=== PATIENT | female | born 1990 | race Caucasian/White ===

== ENCOUNTER 2020-07-27 09:41 | Outpatient (RCR) | payer OTHER, SELFPAY ==
[2020-07-27] MEDS: RHO(D) IMMUNE GLOBULIN 300 MCG SYRINGE IM (16:45)
== END 2020-10-25 23:59 | disposition home or self-care (01) ==
LOC: ANHLAB 09:41
PROVIDERS: Visit Provider Obstetrics & Gynecology
DX: Z29.13 Encounter for prophylactic Rho(D) immune globulin (principal); O36.0130 Maternal care for anti-D [Rh] antibodies, third trimester, not applicable or unspecified; Z3A.00 Weeks of gestation of pregnancy not specified
CPT/HCPCS: 36415; 85461; 90384; 96372; J2790

== ENCOUNTER 2020-09-29 20:15 | Emergency (ER) | payer OTHER, SELFPAY ==
[2020-09-29 20:18] VITALS: BP 129/67; PULSE 75; RESP 16; TEMP 36.5; O2SAT 100
[2020-09-29 21:06] LABS: Basophils Percent Auto 0.5 % (0.2-1.2); Eosinophils Absolute Auto 0.1 K/mm3 (0-0.3); Hematocrit 38.3 % (37.0-47.0); Hemoglobin 12.6 g/dL (12.0-15.0); Immature Granulocyte Absolute 0.03 K/mm3 (0.00-0.031); Immature Granulocyte Percent A 0.3 % (0-0.5); Lymphocytes Absolute Auto 2.91 K/mm3 (0.9-3.2); Lymphocytes Percent Auto 32.8 % (18.3-44.2); Mean Corpuscular HGB Conc 32.9 g/dl (32-36); Mean Platelet Volume 10.1 fl (7.4-10.4); Monocytes Absolute Auto 0.6 K/mm3 (0.1-0.6); Monocytes Percent Auto 6.5 % (2.6-8.5); Neutrophils Absolute Auto 5.2 K/mm3 (1.3-6.7); Neutrophils Percent Auto 58.9 % (45.5-73.1); Platelet Count Result 254 k/mm3 (150-375); Red Blood Count 4.67 M/mm3 (4.2-5.4); Red Cell Distribution Width 13.9 % (11.5-14.5); White Blood Count 8.9 K/mm3 (4.5-10.0)
--- NOTE | 2020-09-29 21:09 | ED.FEMALEGU ---
HPI - Female Genitourinary General Chief complaint: Vaginal Bleeding Stated complaint: 15 weeks preg; vag bleed Time Seen by Provider: 09/29/20 21:02 Source: patient Mode of arrival: ambulatory Limitations: no limitations History of Present Illness HPI Narrative: Patient is a 30-year-old G5, P3 at 15 weeks complaining of vaginal bleeding that started 2 hours prior to arrival. Patient also complaining of mild abdominal cramping, lower. Patient states that she has had 2 ultrasounds during this the most recent one was when she was at 13 weeks and it was normal . Patient also received RhoGam back in July due to vaginal spotting. Patient has had care during this . Patient has no other complaints. Related Data Home Medications Medication Instructions Recorded Confirmed No Home Medications 05/21/19 05/21/19 Allergies Allergy/AdvReac Type Severity Reaction Status Date / Time acetaminophen Allergy Mild Nausea and Verified 05/21/19 10:38 Vomiting hydrocodone Allergy Mild Nausea and Verified 05/21/19 10:38 Vomiting TIDE (SOAP) Allergy Mild RASH Uncoded 05/21/19 10:38 Review of Systems Review of Systems: All systems reviewed & are unremarkable except as noted in HPI and below Constitutional: Constitutional: Denies body ache(s), Denies chills, Denies excessive sweating, Denies fatigue, Denies fever(s), Denies headache(s), Denies lethargy, Denies malaise, Denies weakness and Denies weight loss Eyes: Eyes: Denies blurry vision, Denies change in vision and Denies loss of vision ENT: Denies dizziness, Denies ear discharge, Denies headache(s), Denies lip swelling, Denies epistaxis, Denies nasal congestion, Denies neck pain, Denies throat swelling and Denies tongue swelling Cardiovascular: Cardiovascular: Denies chest pain, Denies chest pain at rest, Denies chest pain with activity, Denies diaphoresis, Denies rapid heart rate, Denies edema, Denies irregular heart rhythm, Denies lightheadedness, Denies palpitations, Denies dyspnea and Denies dyspnea on exertion Respiratory: Respiratory: Denies chest congestion, Denies cough, Denies hemoptysis, Denies dyspnea and Denies dyspnea on exertion Gastrointestinal: Gastrointestinal: Denies abdominal pain, Denies melena, Denies hematochezia, Denies diarrhea, Denies nausea, Denies vomiting and Denies hematemesis Musculoskeletal: Musculoskeletal: Denies abnormal gait, Denies deformity, Denies joint swelling, Denies limited range of motion, Denies neck pain and Denies numbness Neurologic: Denies Abnormal speech present, Denies abnormal gait, Denies confusion, Denies dizziness, Denies headache(s), Denies focal weakness, Denies loss of vision, Denies numbness, Denies Other visual disturbances, Denies Sensory deficit (Neuro) and Denies weakness Psychiatric: Psychiatric: Denies confusion, Denies depression, Denies auditory hallucinations, Denies homicidal ideation and Denies suicidal ideation Endocrine: Endocrine: Denies cold intolerance, Denies excessive sweating, Denies fatigue, Denies heat intolerance and Denies palpitations Hematologic/Lymphatic: Hematologic/Lymphatic: Denies easy bleeding and Denies easy bruising Allergic/Immunologic: Allergic/Immunologic: Denies lip swelling, Denies throat swelling and Denies tongue swelling PMF Surgical History Surgical History (Updated 05/21/19 @ 10:37 by Mónica Moore PA-C) History of cholecystectomy History of dilation and curettage Social History Social History (Updated 05/21/19 @ 10:37 by Mónica Moore PA-C) Smoking status: Never smoker Substance use: never Gender identity (if verbalized by the patient): Female Comments Past medical history: None Social history: Non-smoker no EtOH or drug use Family history: Noncontributory Exam Const: General: cooperative, healthy appearing, comfortable, no acute distress, well developed, alert and awake; No confusion Orientation/consciousness: oriented to p
[2020-09-29 21:19] VITALS: BP 121/79; BP 132/83; PULSE 67; PULSE 71
--- NOTE | 2020-09-29 21:21 | PC.NURSE ---
EDNP presented to bedside. Pt presents to ED with complaints of vaginal bleeding since 1900. Pt states this is her 5th preganancy and she is approx 15 weeks . Pt states she is having to changing her pad 2-3 times an hour. Pt alert and oriented x4 and in no obvious distress.
[2020-09-29 21:24] VITALS: BP 125/82; PULSE 79
--- NOTE | 2020-09-29 21:25 | PC.NURSE ---
Pelvic exam completed by EDNP and pt tolerated well with no complaints or concerns voiced.
[2020-09-29] MEDS: SODIUM CHLORIDE 0.9% IV 1,000 ML 999 ML IV CONT (21:30)
--- NOTE | 2020-09-29 21:30 | PC.NURSE ---
Pt resting on cart alert, stable and in no obvious distress. Vitals are stable. Call button and personal items within reach. Pt advised to press call button for assistance.
[2020-09-29 21:42] LABS: Add Urine Microscopic? YES; Appearance Urine Clear (Clear); Bilirubin Urine Negative (Negative); Blood Urine 3+ (Negative); Color Urine Yellow (Yellow); Glucose Urine UA Negative (Negative); Ketones Urine 1+ mg/dL (Negative); Leukocyte Esterase Ur Negative LEU/UL (Negative); Mucus Urine Rare /lpf; Nitrate Urine Negative (Negative); Protein Urine 1+ mg/dL (Negative); RBC Urine >75 /hpf (0-2); Squamous Epithelial Cell Urine Few /hpf (Few); Urobilinogen Urine Negative mg/dL (<2.0); WBC Urine 0-3 /hpf
[2020-09-29 21:48] LABS: Alanine Aminotransferase 10 U/L (4-35); Albumin Level 4.2 g/dL (3.5-5.1); Alkaline Phosphatase 47 U/L (38-126); Anion Gap 8 mmol/L (8-16); Aspartate Amino Transferase 21 U/L (14-36); Bilirubin,Total 0.2 mg/dL (0.2-1.3); Blood Urea Nitrogen 7 mg/dL (7-17); Calcium 9.6 mg/dL (8.4-10.2); Carbon Dioxide 24 mmol/L (22-30); Chloride 107 mmol/L (98-107); Estimated CRCL calculation 95 ml/min; Estimated Glomerular Filt Rate > 60; Glucose 85 mg/dL (65-105); Potassium 3.6 mmol/L (3.4-5.0); Sodium 139 mmol/L (137-145)
--- NOTE | 2020-09-29 22:15 | PC.NURSE ---
pt resting on cart in its lowest position with call button and personal items within reach. Pt alert and oriented x4 and in no obvious distress. vitals are stable and pt advised to press call button for assistance.
--- NOTE | 2020-09-29 23:17 | PC.NURSE ---
Pt resting on cart in its lowest position. Pt updated on poc and all questions and concerns addressed. Vitals are stable and pt in no obvious distress at this time.
[2020-09-29 23:19] VITALS: BP 126/81; PULSE 80; RESP 15; TEMP 37.1; O2SAT 100
[2020-09-29 23:20] VITALS: BP 126/81; PULSE 80; RESP 15; TEMP 37.1; O2SAT 100
== END 2020-09-29 23:21 | disposition home or self-care (01) ==
PROVIDERS: Emergency Medicine; Emergency Provider Emergency Medicine
DX: O20.0 Threatened abortion (principal)
CPT/HCPCS: 36415; 80053; 81001; 81025; 84702; 85025; 85461; 86880; 86902; 96360; 96361; 99284; J7030

== ENCOUNTER 2020-09-30 10:39 | Outpatient (CLI) | payer OTHER, SELFPAY ==
--- NOTE | ~2020-09-30 | US_ITS ---
EXAMINATION: US OB limited EXAM DATE: 09/30/2020 11:07 INDICATION: Vaginal bleeding, . 2nd trimester. TECHNIQUE: Pelvic obstetrical transabdominal sonogram was performed by a technologist. There are mu ltiple grayscale and Doppler images available for interpretation. Comparison is made to prior examina tion from 05/21/2019. FINDINGS: There is a single fetus identified in transverse, feet on maternal left side presentation w ith a heart rate of 159 beats per minute. The placenta is located in the anterior fundal position. T here is no sonographic evidence of retroplacental hemorrhage identified. There is subjectively expect ed amount of amniotic fluid. IMPRESSION: 1. Single fetus in transverse presentation with heart rate 159 beats per minute. 2. Unremarkable anterior fundal placenta. Reviewed, dictated and finalized at location A. IMPRESSION: 1. Single fetus in transverse presentation with heart rate 159 beats per minut e. 2. Unremarkable anterior fundal placenta.
== END 2020-09-30 10:40 | disposition home or self-care (01) ==
LOC: ANHIMG 10:43
PROVIDERS: Visit Provider Obstetrics & Gynecology
DX: O20.9 Hemorrhage in early pregnancy, unspecified (principal); Z3A.00 Weeks of gestation of pregnancy not specified
CPT/HCPCS: 76815

== ENCOUNTER 2020-12-09 09:31 | Observation (INO) | payer OTHER, SELFPAY ==
[2020-12-09 09:47] VITALS: BP 128/78; PULSE 84
[2020-12-09 10:01] VITALS: BP 123/81; PULSE 89
[2020-12-09 10:11] VITALS: BMI 31.8
--- NOTE | 2020-12-09 10:12 | OBADM ---
This patient, Margie Medeiros, admitted to the OB room OB Post 115 for observation. Patient/family oriented to hospital policies and general routines including ID bracelet, bed and alarms, visiting hours, pain management, procedures, bathroom and other care routines, personal items, smoking policy, room service/diet, and visiting hours. Patient/Family are encouraged to report perceived risks to care and to ask questions if they do not understand what they are told or what they should do.
[2020-12-09 10:16] VITALS: BP 121/77; PULSE 87
[2020-12-09 10:17] LABS: Add Urine Microscopic? NO; Appearance Urine Clear (Clear); Bilirubin Urine Negative (Negative); Blood Urine Negative (Negative); Color Urine Yellow (Yellow); Glucose Urine UA Negative (Negative); Ketones Urine Negative (Negative); Leukocyte Esterase Ur Negative LEU/UL (Negative); Nitrate Urine Negative (Negative); Protein Urine Negative (Negative); Specific Grav Ur 1.006 (1.001-1.035); Urobilinogen Urine Negative mg/dL (<2.0)
--- NOTE | 2020-12-09 10:30 | PC.NURSE ---
1601--Phone call to Richie Rivero CNM re: pt's lab results, her reports of cramping, no ctxns noted on EFM or to palpation. Orders to DC home at this time.
[2020-12-09 10:31] VITALS: BP 117/77; PULSE 78
--- NOTE | 2020-12-30 08:25 | P.PNOB_ITS ---
OB - Triage/Final Diagnosis Visit Information Comments/Additional reasons for admission: I have assessed the risk for this patient, Margie Medeiros, and determined that she would benefit from observation care. Evaluation Laboratory results: Laboratory Tests 12/09/20 10:01 Urine Color Yellow Urine Appearance Clear Urine pH 7.0 Ur Specific [place] 1.006 Urine Protein Negative Urine Glucose (UA) Negative Urine Ketones Negative Ur Blood (Man) Negative Urine Nitrate Negative Urine Bilirubin Negative Urine Urobilinogen Negative Leukocyte Esterase Rfl Negative Final Diagnosis (1) False labor: Code(s): O47.9 - False labor, unspecified Status: Acute
== END 2020-12-09 10:43 | disposition home or self-care (01) ==
PROVIDERS: Advanced Practice Midwife; Admitting Provider Obstetrics & Gynecology; Visit Provider Obstetrics & Gynecology
DX: O47.9 False labor, unspecified (principal); Z3A.00 Weeks of gestation of pregnancy not specified
CPT/HCPCS: 81003; G0378; G0379

== ENCOUNTER 2020-12-15 17:32 | Emergency (ER) | payer OTHER, SELFPAY ==
[2020-12-15 17:43] VITALS: BP 113/74; PULSE 92; RESP 18; TEMP 36.7; O2SAT 100
--- NOTE | 2020-12-15 18:26 | ED.SKABFB ---
HPI - Skin/Abscess/Foreign Bdy General Chief complaint: Skin/Abscess/Foreign Body Stated complaint: RASH Source: patient and RN notes reviewed Mode of arrival: ambulatory History of Present Illness HPI narrative: This is a 30-year-old female who presented to our urgent care with complaints generalized rash. Patient notes that in the past she would get steroid shots for her rash but due to her she is not able to get those shots. She did call her [facility] who referred her to urgent care. I explained to patient that due to her we would not be able to give her any of the medication did we typically give for for contact dermatitis she would need to follow-up with her primary care physician. She was instructed to use mwxv-exi-lwffoly Benadryl or Claritin to relieve her. The patient denies SOB, CP, palpitation, extremity numbness, lightheadedness, dizziness, constipation, diarrhea, chills, or fever. MD complaint: rash Related Data Home Medications Medication Instructions Recorded Confirmed 1 tablet PO 12/09/20 Allergies Allergy/AdvReac Type Severity Reaction Status Date / Time lavender (Lavandula Allergy Hives Verified 12/09/20 10:11 angustifolia) TIDE (SOAP) Allergy Mild RASH Uncoded 05/21/19 10:38 Review of Systems Review of Systems: Review of systems [facility] Surgical History Surgical History (Updated 05/21/19 @ 10:37 by Mónica Moore PA-C) History of cholecystectomy History of dilation and curettage Family History Family History (Updated 12/15/20 @ 18:27 by MARCIAL Briceno) Other Family history non-contributory Social History Social History (Updated 05/21/19 @ 10:37 by Mónica Moore PA-C) Smoking status: Never smoker Substance use: never Gender identity (if verbalized by the patient): Female Exam Narrative: GENERAL: This is a well-nourished, well-developed patient, in no apparent distress. HEAD: normocephalic, atraumatic. EYES: PERRL. Sclera clear/white. Vision is grossly intact. EARS: External ears normal, auditory canals clear and without drainage, TMs normal without perforation. Hearing grossly intact. NOSE: External nose normal with no obvious nasal discharge, nares without redness, no rhinorrhea. THROAT: Mucous membranes moist, posterior pharynx clear. NECK: Neck supple, non-tender without lymphadenopathy, masses or thyromegaly. CARDIOVASCULAR: Regular rate and rhythm without murmurs, gallops, or rubs. RESPIRATORY: Clear to auscultation. Breath sounds equal bilaterally. No wheezes, rales, or rhonchi. GASTROINTESTINAL: Abdomen soft, non-tender, nondistended. Bowel sounds are active. No hepato-splenomegaly, or palpable masses. No guarding. SKIN: Generalized erythema and edema to her scalp, chest area and upper extremities NEURO: awake, alert, and oriented to person, place and time. There were no obvious focal neurologic abnormalities. Steady gait EXTREMITIES: Normal range of motion. No edema. No calf tenderness. Negative Homans sign bilaterally. BACK: Nontender without deformity or crepitance. No flank tenderness. Course Course Emergency Course: Patient instructed to use [id number]-zmm-cpzigeo medications and to check box to see if it would harm her fetus. She was instructed to contact her [facility]. Vital Signs Vital signs: Vital Signs Temperature 98.1 F 12/15/20 17:43 Pulse Rate 92 12/15/20 17:43 Respiratory Rate 18 12/15/20 17:43 Blood Pressure 113/74 12/15/20 17:43 Pulse Oximetry 100 12/15/20 17:43 Temperature 98.1 F 12/15/20 17:43 Pulse Rate 92 12/15/20 17:43 Respiratory Rate 18 12/15/20 17:43 Blood Pressure 113/74 12/15/20 17:43 Pulse Oximetry 100 12/15/20 17:43 MDM - Skin/Abscess/Foreign Bdy Differential Diagnosis Differential diagnosis: Likely cellulitis, insect bites, impetigo and contact dermatitis Discharge Plan Discharge Clinical Impression: Contact dermatitis Qualifiers: Contact dermatitis t
== END 2020-12-15 18:54 | disposition home or self-care (01) ==
PROVIDERS: Emergency Provider Nurse Practitioner
DX: O99.712 Diseases of the skin and subcutaneous tissue complicating pregnancy, second trimester (principal); Z3A.25 25 weeks gestation of pregnancy; L24.5 Irritant contact dermatitis due to other chemical products
CPT/HCPCS: 99211; G0463

== ENCOUNTER 2020-12-27 13:14 | Outpatient (CLI) | payer OTHER, SELFPAY ==
[2020-12-27 14:35] VITALS: BP 119/77; PULSE 90
--- NOTE | 2020-12-27 14:55 | PC.NURSE ---
Dr Godinez notified of c/o leaking and negative ROM plus. OK to dc home.
== END 2020-12-27 14:56 | disposition home or self-care (01) ==
LOC: ANHOBOP 15:06 → ANHOBPP 15:07
PROVIDERS: Visit Provider Obstetrics & Gynecology
DX: O42.90 Premature rupture of membranes, unspecified as to length of time between rupture and onset of labor, unspecified weeks of gestation (principal); Z3A.00 Weeks of gestation of pregnancy not specified
CPT/HCPCS: 59025; 84112; 99199

== ENCOUNTER 2020-12-29 08:29 | Outpatient (CLI) | payer OTHER, SELFPAY ==
[2020-12-29 10:07] LABS: Hematocrit 32.7 % (37.0-47.0); Hemoglobin 10.4 g/dL (12.0-15.0)
[2020-12-29 10:17] LABS: Glucose 1 Hour PP 50gm Dose 138 mg/dL
[2020-12-29 10:56] LABS: HIV 1/2 Ab P24 Ag Result Negative (Negative)
[2020-12-29 11:20] LABS: Rapid Plasma Reagin Non-Reactive (NonReactive)
[2020-12-29] MEDS: RHO(D) IMMUNE GLOBULIN 300 MCG/2 ML SYRINGE IM (16:45)
== END 2020-12-29 08:30 | disposition home or self-care (01) ==
LOC: ANHLAB 08:31
PROVIDERS: Visit Provider Advanced Practice Midwife
DX: O36.0130 Maternal care for anti-D [Rh] antibodies, third trimester, not applicable or unspecified (principal); Z3A.00 Weeks of gestation of pregnancy not specified
CPT/HCPCS: 36415; 82947; 85014; 85018; 85461; 86592; 86703; 90384; 96372; G0432; J2790

== ENCOUNTER 2020-12-31 09:24 | Outpatient (CLI) | payer OTHER, SELFPAY ==
[2020-12-31 09:52] VITALS: BP 114/73; PULSE 117
[2020-12-31 11:20] VITALS: BP 114/73; PULSE 100
== END 2020-12-31 10:15 | disposition home or self-care (01) ==
LOC: ANHOBOP 09:32 → ANHOBPP 09:33
PROVIDERS: Visit Provider Advanced Practice Midwife
DX: O42.90 Premature rupture of membranes, unspecified as to length of time between rupture and onset of labor, unspecified weeks of gestation (principal); Z3A.00 Weeks of gestation of pregnancy not specified
CPT/HCPCS: 59025; 84112; 99199

== ENCOUNTER 2021-01-24 15:06 | Observation (INO) | payer OTHER, SELFPAY ==
[2021-01-24 15:31] VITALS: BP 120/72; PULSE 102
[2021-01-24 15:46] VITALS: BP 116/73; PULSE 88
[2021-01-24 16:01] VITALS: BP 123/73; PULSE 101
[2021-01-24 16:16] VITALS: BP 105/80; PULSE 91
[2021-01-24 16:31] VITALS: BP 118/70; PULSE 87
[2021-01-24 16:46] VITALS: BP 114/70; PULSE 97
[2021-01-24 17:16] LABS: Add Urine Microscopic? YES; Appearance Urine Clear (Clear); Bacteria Urine Trace /hpf; Bilirubin Urine Negative (Negative); Blood Urine Negative (Negative); Calcium Oxalate Crystals Urine Present /hpf; Color Urine Yellow (Yellow); Glucose Urine UA Negative (Negative); Ketones Urine Negative (Negative); Leukocyte Esterase Ur Negative LEU/UL (NEGATIVE); Mucus Urine Rare /lpf; Nitrate Urine Negative (Negative); Protein Urine 1+ mg/dL (Negative); Specific Grav Ur 1.027 (1.001-1.035); Squamous Epithelial Cell Urine Rare /hpf (Few); Urobilinogen Urine Negative mg/dL (<2.0); WBC Urine 0-3 /hpf (0-3)
--- NOTE | 2021-02-01 11:41 | P.PNOB_ITS ---
OB - Triage/Final Diagnosis Visit Information Date of evaluation: 01/30/21 Reason for evaluation: threatened labor Comments/Additional reasons for admission: I have assessed the risk for this patient, Margie Medeiros, and determined that she would benefit from observation care. Evaluation Laboratory results: Laboratory Tests 01/24/21 16:57 Urine Color Yellow Urine Appearance Clear Urine pH 6.0 Ur Specific [place] 1.027 Urine Protein 1+ H Urine Glucose (UA) Negative Urine Ketones Negative Ur Blood (Man) Negative Urine Nitrate Negative Urine Bilirubin Negative Urine Urobilinogen Negative Ur Leukocyte Esterase Negative Urine RBC 3-5 H Urine WBC 0-3 Ur Squamous Epith Cells Rare Calcium Oxalate Crystal Present Urine Bacteria Trace Urine Mucus Rare
== END 2021-01-24 17:01 | disposition home or self-care (01) ==
PROVIDERS: Advanced Practice Midwife; Admitting Provider Obstetrics & Gynecology; Referring Provider Advanced Practice Midwife; Visit Provider Obstetrics & Gynecology
DX: O47.9 False labor, unspecified (principal); Z3A.00 Weeks of gestation of pregnancy not specified
CPT/HCPCS: 81001; 87086; G0378; G0379

== ENCOUNTER 2021-02-01 15:16 | Observation (INO) | payer OTHER, SELFPAY ==
[2021-02-01 15:53] VITALS: BP 121/70; PULSE 78
[2021-02-01 16:00] VITALS: BMI 33.3
[2021-02-01 16:08] LABS: Add Urine Microscopic? YES; Appearance Urine Cloudy (Clear); Bacteria Urine Trace /hpf; Bilirubin Urine Negative (Negative); Blood Urine Negative (Negative); Color Urine Yellow (Yellow); Glucose Urine UA Negative (Negative); Ketones Urine Negative (Negative); Leukocyte Esterase Ur 2+ LEU/UL (NEGATIVE); Mucus Urine Rare /lpf; Nitrate Urine Negative (Negative); Protein Urine Negative (Negative); Specific Grav Ur 1.011 (1.001-1.035); Squamous Epithelial Cell Urine Many /hpf (Few); Urobilinogen Urine Negative mg/dL (<2.0)
--- NOTE | 2021-02-28 21:33 | P.PNOB_ITS ---
OB - Triage/Final Diagnosis Visit Information Comments/Additional reasons for admission: I have assessed the risk for this patient, Margie Medeiros, and determined that she would benefit from observation care. Evaluation Laboratory results: Laboratory Tests 02/01/21 15:55 Urine Color Yellow Urine Appearance Cloudy H Urine pH 7.0 Ur Specific [place] 1.011 Urine Protein Negative Urine Glucose (UA) Negative Urine Ketones Negative Ur Blood (Man) Negative Urine Nitrate Negative Urine Bilirubin Negative Urine Urobilinogen Negative Ur Leukocyte Esterase 2+ H Urine RBC 3-5 H Urine WBC 4-6 H Ur Squamous Epith Cells Many H Urine Bacteria Trace Urine Mucus Rare
--- NOTE | 2021-03-04 07:41 | P.PNOB_ITS ---
OB - Triage/Final Diagnosis Visit Information Comments/Additional reasons for admission: I have assessed the risk for this patient, Margie Medeiros, and determined that she would benefit from observation care. Evaluation Laboratory results: Laboratory Tests 02/01/21 15:55 Urine Color Yellow Urine Appearance Cloudy H Urine pH 7.0 Ur Specific [place] 1.011 Urine Protein Negative Urine Glucose (UA) Negative Urine Ketones Negative Ur Blood (Man) Negative Urine Nitrate Negative Urine Bilirubin Negative Urine Urobilinogen Negative Ur Leukocyte Esterase 2+ H Urine RBC 3-5 H Urine WBC 4-6 H Ur Squamous Epith Cells Many H Urine Bacteria Trace Urine Mucus Rare Final Diagnosis (1) contractions: Code(s): O47.00 - False labor before 37 completed weeks of gestation, unspecified trimester Status: Acute
== END 2021-02-01 16:47 | disposition home or self-care (01) ==
PROVIDERS: Admitting Provider Obstetrics & Gynecology; PCP Advanced Practice Midwife; Visit Provider Obstetrics & Gynecology
DX: O60.03 Preterm labor without delivery, third trimester (principal); Z3A.32 32 weeks gestation of pregnancy
CPT/HCPCS: 81001; 87086; G0378; G0379

== ENCOUNTER 2021-02-21 11:04 | Observation (INO) | payer OTHER, SELFPAY ==
[2021-02-21 11:33] VITALS: BP 131/82; PULSE 102
[2021-02-21 11:38] VITALS: BP 127/80; PULSE 88; BMI 34.0
--- NOTE | 2021-02-21 11:39 | OBADM ---
This patient, Margie Medeiros, admitted to the OB room OB Post 113 for observation for contractions on/off since Sunday. She states she will have some contractions or cramping for a while, then they stop. Patient is oriented to hospital policies and general routines including ID bracelet, bed and alarms, visiting hours, pain management, procedures, bathroom and other care routines, personal items, smoking policy, room service/diet, call light and visiting hours. Patient is encouraged to report perceived risks to care and to ask questions if she does not understand what she is told or what she should do.
[2021-02-21 11:46] VITALS: BP 125/90; PULSE 87
[2021-02-21 12:04] VITALS: BP 119/76; PULSE 67
[2021-02-21 12:11] LABS: Basophils Percent Auto 0.2 % (0.2-1.2); Eosinophils Percent Auto 0.5 % (0-4.4); Hematocrit 30.4 % (37.0-47.0); Hemoglobin 9.4 g/dL (12.0-15.0); Immature Granulocyte Absolute 0.05 K/mm3 (0.00-0.031); Immature Granulocyte Percent A 0.6 % (0-0.5); Lymphocytes Percent Auto 22.2 % (18.3-44.2); Mean Corpuscular HGB Conc 30.9 g/dl (32-36); Mean Corpuscular Hemoglobin 24.2 pg (26-34); Mean Corpuscular Volume 78.1 fl (80-100); Mean Platelet Volume 10.7 fl (7.4-10.4); Monocytes Absolute Auto 0.6 K/mm3 (0.1-0.6); Monocytes Percent Auto 6.8 % (2.6-8.5); Neutrophils Absolute Auto 5.6 K/mm3 (1.3-6.7); Neutrophils Percent Auto 69.7 % (45.5-73.1); Platelet Count Result 182 k/mm3 (150-375); Red Blood Count 3.89 M/mm3 (4.2-5.4); Red Cell Distribution Width 14.6 % (11.5-14.5); White Blood Count 8.1 K/mm3 (4.5-10.0)
[2021-02-21 12:13] LABS: Add Urine Microscopic? NO; Appearance Urine Clear (Clear); Bilirubin Urine Negative (Negative); Blood Urine Negative (Negative); Color Urine Yellow (Yellow); Glucose Urine UA Negative (Negative); Ketones Urine Negative (Negative); Leukocyte Esterase Ur Negative LEU/UL (NEGATIVE); Nitrate Urine Negative (Negative); Protein Urine Negative (Negative); Specific Grav Ur 1.008 (1.001-1.035); Urobilinogen Urine Negative mg/dL (<2.0)
[2021-02-21 12:21] LABS: Alanine Aminotransferase 10 U/L (4-35); Albumin Level 3.7 g/dL (3.5-5.1); Alkaline Phosphatase 109 U/L (38-126); Anion Gap 4 mmol/L (8-16); Aspartate Amino Transferase 19 U/L (14-36); Bilirubin,Total 0.3 mg/dL (0.2-1.3); Blood Urea Nitrogen 5 mg/dL (7-17); Calcium 8.5 mg/dL (8.4-10.2); Carbon Dioxide 25 mmol/L (22-30); Chloride 106 mmol/L (98-107); Estimated CRCL calculation 113 ml/min; Estimated Glomerular Filt Rate > 60; Glucose 84 mg/dL (65-110); Potassium 4.1 mmol/L (3.4-5.0); Sodium 135 mmol/L (137-145); Uric Acid 4.3 mg/dL (2.5-7.5)
--- NOTE | 2021-03-14 08:18 | P.PNOB_ITS ---
OB - Triage/Final Diagnosis Visit Information Comments/Additional reasons for admission: I have assessed the risk for this patient, Margie Medeiros, and determined that she would benefit from observation care. Evaluation Laboratory results: Laboratory Tests 02/21/21 02/21/21 02/21/21 12:01 12:01 12:01 WBC 8.1 RBC 3.89 L Hgb 9.4 L Hct 30.4 L MCV 78.1 L MCH 24.2 L MCHC 30.9 L RDW 14.6 H Plt Count 182 MPV 10.7 H Immature Gran % (Auto) 0.6 H Neut % (Auto) 69.7 Lymph % (Auto) 22.2 [place] % (Auto) 6.8 Eos % (Auto) 0.5 Baso % (Auto) 0.2 Lymph # (Auto) 1.80 [place] # (Auto) 0.6 Eos # (Auto) 0.0 Baso # (Auto) 0.0 Abs Immat Gran (auto) 0.05 H Absolute Neuts (auto) 5.6 Absolute Nucleated RBC 0.0 Nucleated RBC % 0.0 Sodium 135 L Potassium 4.1 Chloride 106 Carbon Dioxide 25 Anion Gap 4 L BUN 5 L Creatinine 0.60 L Estim Creat Clear Calc 113 Estimated GFR > 60 Glucose 84 Uric Acid 4.3 Calcium 8.5 Total Bilirubin 0.3 AST 19 ALT 10 Alkaline Phosphatase 109 Total Protein 7.0 Albumin 3.7 Urine Color Yellow Urine Appearance Clear Urine pH 7.0 Ur Specific [place] 1.008 Urine Protein Negative Urine Glucose (UA) Negative Urine Ketones Negative Ur Blood (Man) Negative Urine Nitrate Negative Urine Bilirubin Negative Urine Urobilinogen Negative Ur Leukocyte Esterase Negative Final Diagnosis (1) False labor: Code(s): O47.9 - False labor, unspecified Status: Acute
== END 2021-02-21 12:59 | disposition home or self-care (01) ==
PROVIDERS: Admitting Provider Obstetrics & Gynecology; PCP Advanced Practice Midwife; Visit Provider Obstetrics & Gynecology
DX: O47.03 False labor before 37 completed weeks of gestation, third trimester (principal); Z3A.35 35 weeks gestation of pregnancy
CPT/HCPCS: 36415; 80053; 81003; 84550; 85025; 87086; 87088; G0378; G0379

== ENCOUNTER 2021-03-01 12:19 | Observation (INO) | payer OTHER, SELFPAY ==
--- NOTE | ~2021-03-01 | US_ITS ---
EXAMINATION: US OB BPP wo non-stress DATE: 03/01/2021 16:02 CDT INDICATION: Decreased movement TECHNIQUE: Real-time transabdominal obstetric ultrasound. FINDINGS: Comparison to 09/30/2020 There is a single living fetus in vertex presentation. The placenta is anterior without placenta pre via. cardiac activity and movement is noted with a heart rate of 144 beats per minute. Biophysical profile: breathin of 2 movement: 2 of 2 tone: 2 of 2 Amniotic flud pocket: 2 of 2 Total score: 8 of 8 IMPRESSION: 1. Single living intrauterine in vertex presentation. 2: Total biophysical profile score of 8/8. Reviewed, dictated and finalized at location B.
[2021-03-01 12:27] VITALS: BMI 34.1
--- NOTE | 2021-03-01 15:46 | OBADM ---
This patient, Margie Medeiros, admitted to the OB room Labor/Delivery/Recovery 106 for observation. Patient/family oriented to hospital policies and general routines including ID bracelet, bed and alarms, visiting hours, pain management, procedures, bathroom and other care routines, personal items, smoking policy, room service/diet, and visiting hours. Patient/Family are encouraged to report perceived risks to care and to ask questions if they do not understand what they are told or what they should do.
--- NOTE | 2021-03-01 16:02 | PC.NURSE ---
1540--To US per wheelchair.
--- NOTE | 2021-03-01 16:03 | PC.NURSE ---
1603--[facility] 12/19. DC orders given.
--- NOTE | 2021-03-09 07:38 | PM.OBTRLD ---
OB - Triage/Final Diagnosis Visit Information Date of evaluation: 03/01/21 Reason for evaluation: threatened labor Comments/Additional reasons for admission: I have assessed the risk for this patient, Margiearistides Medeiros, and determined that she would benefit from observation care.
== END 2021-03-01 16:06 | disposition home or self-care (01) ==
LOC: ANHLDR 15:19
PROVIDERS: Admitting Provider Obstetrics & Gynecology; Visit Provider Obstetrics & Gynecology
DX: O47.03 False labor before 37 completed weeks of gestation, third trimester (principal); Z3A.36 36 weeks gestation of pregnancy
CPT/HCPCS: 76819; G0378; G0379

== ENCOUNTER 2021-03-17 01:49 | Inpatient (IN) | payer OTHER, SELFPAY ==
[2021-03-17] VITALS (132 sets, daily range): BP systolic 99–161; BP diastolic 52–107; PULSE 77–137; RESP 18–20; TEMP 36–38; O2SAT 95–100; BMI 34.5
--- NOTE | 2021-03-17 01:49 | LDADM ---
This patient, Margie Medeiros, was admitted to Labor/Delivery/Recovery 104 on 03/17/21 at 01:49. Plans for labor, pain management and were discussed with patient. Patient/family oriented to hospital policies and general routines including ID bracelet, bed and alarms, visiting hours, pain management, procedures, bathroom and other care routines, personal items, smoking policy, room service/diet and guest tray routines, infant security routines, and visiting hours. Patient/Family are encouraged to report perceived risks to care and to ask questions if they do not understand what they are told or what they should do. See OBIX for further documentation.
--- OUTSIDE RECORDS SUMMARY | 2021-03-17 01:55 | XMS_ITS | Encounter Summary ---
:1990 Author Reason for Visit OB visit OB [id number] EDC 03/23/2021 LMP 06/24/2020 embryo transfer 07/04/2020 Assessment and Plan Assessment Note Patient is __37_weeks . Dis cussed plan. 1. Routine care Discussion Note: None recorded.Patient educational handouts: No information available. Plan of Care Reminders Provider Appointments [facility]2021 [facility] None ? ? recorded. Referral None ? ? recorded. Procedures None ? ? recorded. Surgeries None ? ? recorded. Imaging None ? ? recorded. Medications Name Start Date ? ? ondansetron 4 mg disintegrating tablet ? Take 1 tablet every 4-6 hours as needed for nausea, place on top of the tongue where it will dissolve, then swallow. Vitamin 05/14/2020 Medications Administered None recorded. Vitals Height Weight BMI Blood Pressure 5 ft 2.5 in 185 lbs 33.3 kg/m2 123/83 mm[Hg] Results Lab Results None recorded. Allergies Code Code System Name Reaction Severity Onset [id number] RxNorm Lavender Rash ? ? (Lavandula
--- OUTSIDE RECORDS SUMMARY | 2021-03-17 01:55 | XMS_ITS | Encounter Summary ---
:1990 Author Reason for Visit None recorded. Assessment and Plan 1. IVF - in-vitro fertilization ? non-stress test Discussion Note: None recorded.Patient educational handouts: No information available. Plan of Care Reminders Provider Appointments Return to on or around [facility] Office 05/24/2021 [facility] None ? ? recorded. Referral None ? ? recorded. Procedures None ? ? recorded. Surgeries None ? ? recorded. Imaging 03/02/2021 [place] Non-stress Test Medications Name Start Date ? ? ondansetron 4 mg disintegrating tablet ? Take 1 tablet every 4-6 hours as needed for nausea, place on top of the tongue where it will dissolve, then swallow. Vitamin 05/14/2020 Medications Administered None recorded. Vitals None recorded. Results Lab Results None recorded. Allergies Code Code System Name Reaction Severity Onset [id number] RxNorm Lavender Rash ? ? (Lavandula Angustifolia) Soap ? ? ? Problems Name Status
--- OUTSIDE RECORDS SUMMARY | 2021-03-17 01:55 | XMS_ITS | Encounter Summary ---
:1990 Author Reason for Visit None recorded. Assessment and Plan 1. IVF - in-vitro fertilization ? US, obstetric, biophysical profile + non-stress test Discussion Note: None recorded.Patient educational handouts: No information available. Plan of Care Reminders Provider Appointments Return to on or around [facility] Office 05/24/2021 [facility] None ? ? recorded. Referral None ? ? recorded. Procedures None ? ? recorded. Surgeries None ? ? recorded. Imaging US, 03/02/2021 [place] [facility]stetric, Biophysical Profile + Non-stress Test Medications Name Start Date ? ? ondansetron 4 mg disintegrating tablet ? Take 1 tablet every 4-6 hours as needed for nausea, place on top of the tongue where it will dissolve, then swallow. Vitamin 05/14/2020 Medications Administered None recorded. Vitals None recorded. Results Lab Results None recorded. Allergies Code Code System Name Reaction Severity Onset [id number] RxNorm Lavender Rash ? ? (Lavandula Angustifolia)
--- OUTSIDE RECORDS SUMMARY | 2021-03-17 01:55 | XMS_ITS | Encounter Summary ---
:1990 Author Reason for Visit OB visit OB [id number] EDC 03/23/2021 LMP 06/24/2020 and embryo transfer 07/04/20 Assessment and Plan Assessment Note Patient is _38__weeks . Dis cussed plan. 1. Routine care Discussion Note: None recorded.Patient educational handouts: No information available. Plan of Care Reminders Provider Appointments [facility] 05[facility]21 [facility] [...] BMI Blood Pressure 5 ft 2.5 in 189 lbs 34 kg/m2 135/83 mm[Hg] Results Lab Results None recorded. Allergies Code Code System Name Reaction Severity Onset [id number] RxNorm Lavender Rash ? ? (Lavandula
--- OUTSIDE RECORDS SUMMARY | 2021-03-17 01:55 | XMS_ITS ---
:1990 Author Care Team Providers Name Role Phone Letty Rivero Primary Care Provider Unavailable Allergies Code Code System Name Reaction Severity Status Onset [id number] RxNorm Lavender Rash ? Active ? (Lavandula Angustifolia) Soap ? ? Active ? Medications Name Status Start Date Stop Date ? ? azithromycin 250 mg tablet Completed ? 08/25 TAKE 2 TABLETS BY MOUTH ON DAY 1 THEN 1 TABLET BY MOUTH DAILY Baby Aspirin 81 mg chewable Completed ? 09/12 tablet BD Luer-Zoe Syringe 3 mL 21 gauge x 1 1/2 Completed ? 08/25/2020 USE DIRECTED [PROGESTERONE MEDICATION] TO DRAW BD Luer-Zoe Syringe 3 mL 22 x 1 1/2 Completed ? 08/25/2020 USE DIRECTED [MENOPUR MEDICATION] BD Regular [place]vel [place] 18 gauge x 1 1/2 Completed ? 08/25/2020 USE DIRECTED [PROGESTERONE MEDICATION] TO INJECT BD Regular [place]vel [place] 25 gauge x 1 1/2 Completed ? 08/25/2020 USE DIRECTED [H.C.G. MEDICATION] BD Regular [place]vel [place] 27 gauge x 1/2 Completed ? 08/25/2020 USE DIRECTED [MENOPUR MEDICATION] cholecalciferol (vitamin D3) 50 Completed ? 10/07/2020 mcg (2,000 unit) capsule Dulcolax (bisacodyl) 10 mg rectal suppository Completed ? 12/03/2020 INSERT 1 SUPPOSITORY RECTALLY ONCE DAILY NEEDED FOR CONSTIPA TION ergocalciferol (vitamin D2) 1,250 mcg (50,000 unit) capsule Comp leted ? 08/25/2020 TAKE 1 CAPSU
--- OUTSIDE RECORDS SUMMARY | 2021-03-17 01:55 | XMS_ITS | Encounter Summary ---
:1990 Author Reason for Visit None recorded. Assessment and Plan 1. IVF - in-vitro fertilization ? non-stress test Discussion Note: None recorded.Patient educational handouts: No information available. Plan of Care Reminders Provider Appointments Return to on or around [facility] Office 05/24/2021 [facility] None ? ? recorded. Referral None ? ? recorded. Procedures None ? ? recorded. Surgeries None ? ? recorded. Imaging 03/11/2021 [place] Non-stress Test Medications Name Start Date ? ? ondansetron 4 mg disintegrating tablet ? Take 1 tablet every 4-6 hours as needed for nausea, place on top of the tongue where it will dissolve, then swallow. Vitamin 05/14/2020 Medications Administered None recorded. Vitals None recorded. Results Lab Results None recorded. Allergies Code Code System Name Reaction Severity Onset [id number] RxNorm Lavender Rash ? ? (Lavandula Angustifolia) Soap ? ? ? Problems Name Status
--- OUTSIDE RECORDS SUMMARY | 2021-03-17 01:55 | XMS_ITS | Encounter Summary ---
:1990 Author Reason for Visit None recorded. Assessment and Plan 1. Large for gestation age fetus ? US, obstetric, biophysical profile + non-stress test ? US, obstetric, follow-up Discussion Note: None recorded.Patient educational handouts: No information available. Plan of Care Reminders Provider Appointments Return to on or around [facility] Office 05/24/2021 [facility] None ? ? recorded. Referral None ? ? recorded. Procedures None ? ? recorded. Surgeries None ? ? recorded. Imaging US, 03/11/2021 [place] [facility], Biophysical Profile + Non-stress Test ? US, 03/11/2021 [place] [facility], Follow-up Medications Name Start Date ? ? ondansetron 4 mg disintegrating tablet ? Take 1 tablet every 4-6 hours as needed for nausea, place on top of the tongue where it will dissolve, then swallow. Vitamin 05/14/2020 Medications Administered None recorded. Vitals None recorded. Results Lab Results None recorded. Allergies Code Code System Name Reaction Severity Onset
--- OUTSIDE RECORDS SUMMARY | 2021-03-17 01:56 | XMS_ITS | Encounter Summary ---
:1990 Author Reason for Visit None recorded. Assessment and Plan 1. Second trimester bleeding ? US, obstetric, biophysical profile Discussion Note: None recorded.Patient educational handouts: No information available. Plan of Care Reminders Provider Appointments Return to on or around [facility] Office 05/24/2021 [facility] None ? ? recorded. Referral None ? ? recorded. Procedures None ? ? recorded. Surgeries None ? ? recorded. Imaging US, 01/26/2021 [place] [facility], Biophysical Profile Medications Name Start Date ? ? ondansetron 4 mg disintegrating tablet ? Take 1 tablet every 4-6 hours as needed for nausea, place on top of the tongue where it will dissolve, then swallow. Vitamin 05/14/2020 Medications Administered None recorded. Vitals None recorded. Results Lab Results None recorded. Allergies Code Code System Name Reaction Severity Onset [id number] RxNorm Lavender Rash ? ? (Lavandula Angustifolia) Soap ? ? ? Problems Name
--- OUTSIDE RECORDS SUMMARY | 2021-03-17 01:56 | XMS_ITS | Encounter Summary ---
:1990 Author Reason for Visit OB visit OB [id number] EDC 03/23/2021 LMP 06/24/20 a nd embryo transfer done 06/24/20 Assessment and Plan Assessment Note Patient is _36__weeks . Dis cussed plan. 1. Routine care Discussion Note: None recorded.Patient educational handouts: No information available. Plan of Care Reminders Provider Appointments [facility] 05[facility]21 [facility] [...] BMI Blood Pressure 5 ft 2.5 in 183 lbs 32.9 kg/m2 120/81 mm[Hg] Results Lab Results None recorded. Allergies Code Code System Name Reaction Severity Onset [id number] RxNorm Lavender Rash ? ? (Lavandula
--- OUTSIDE RECORDS SUMMARY | 2021-03-17 01:56 | XMS_ITS | Encounter Summary ---
:1990 Author Reason for Visit None recorded. Assessment and Plan 1. Medical examination for suspe cted condition ? US, obstetric, follow-up Discussion Note: None recorded.Patient educational handouts: No information available. Plan of Care Reminders Provider Appointments Return to on or around [facility] Office 05/24/2021 [facility] None ? ? recorded. Referral None ? ? recorded. Procedures None ? ? recorded. Surgeries None ? ? recorded. Imaging US, 01/13/2021 [place] [facility], Follow-up Medications Name Start Date ? ? ondansetron 4 mg disintegrating tablet ? Take 1 tablet every 4-6 hours as needed for nausea, place on top of the tongue where it will dissolve, then swallow. Vitamin 05/14/2020 Medications Administered None recorded. Vitals None recorded. Results Lab Results None recorded. Allergies Code Code System Name Reaction Severity Onset [id number] RxNorm Lavender Rash ? ? (Lavandula Angustifolia) Soap ? ? ? Problems Name
--- OUTSIDE RECORDS SUMMARY | 2021-03-17 01:56 | XMS_ITS | Encounter Summary ---
[...] recorded. Surgeries None ? ? recorded. Imaging 02/18/2021 [place] Non-stress Test Medications Name Start Date ? ? ondansetron 4 mg disintegrating tablet ? Take 1 tablet every 4-6 hours as needed for nausea, place on top of the tongue where it will dissolve, then swallow. Vitamin 05/14/2020 Medications Administered None recorded. Vitals None recorded. Results Lab Results None recorded. Allergies Code Code System Name Reaction Severity Onset [id number] RxNorm Lavender Rash ? ? (Lavandula Angustifolia) Soap ? ? ? Problems Name Status
--- OUTSIDE RECORDS SUMMARY | 2021-03-17 01:56 | XMS_ITS | Encounter Summary ---
:1990 Author Reason for Visit None recorded. Assessment and Plan 1. Watery vaginal discharge Discussion Note: None recorded.Patient educational handouts: No information available. Plan of Care Reminders Provider Appointments Return to on or around [facility] Office 05/24/2021 [facility] None ? [...] Code Code System Name Reaction Severity Onset [id number] RxNorm Lavender Rash ? ? (Lavandula Angustifolia) Soap ? ? ? Problems Name Status Onset Date Source ? History of Head Injury Active
--- OUTSIDE RECORDS SUMMARY | 2021-03-17 01:56 | XMS_ITS | Encounter Summary ---
:1990 Author Reason for Visit None recorded. Assessment and Plan 1. Maternal obesity complicating , childbirth and the puerperium, antepartum ? US, obstetric, biophysical profile + non-stress test 2. IVF - in-vitro fertilization Discussion Note: None recorded.Patient educational handouts: No information available. Plan of Care Reminders Provider Appointments [facility] None ? ? recorded. Referral None ? ? recorded. Procedures None ? ? recorded. Surgeries None ? ? recorded. Imaging US, 02/02/2021 [place] [facility], Biophysical Profile + Non-stress Test Medications Name Start Date ? ? ondansetron 4 mg disintegrating tablet ? Take 1 tablet every 4-6 hours as needed for nausea, place on top of the tongue where it will dissolve, then swallow. Vitamin 05/14/2020 Medications Administered None recorded. Vitals None recorded. Results Lab Results None recorded. Allergies Code Code System Name Reaction Severity Onset [id number] RxNorm Lavender Rash ? ? (Lavandula
--- OUTSIDE RECORDS SUMMARY | 2021-03-17 01:56 | XMS_ITS | Encounter Summary ---
:1990 Author Reason for Visit OB visit OB [id number] EDC 03/23/2021 LMP 06/24/2020 embryo transfer 07/05/2020 Assessment and Plan Assessment Note Patient is _34__weeks . Dis cussed plan. 1. Routine care Discussion Note: None recorded.Patient educational handouts: No information available. Plan of Care Reminders Provider Appointments Return to on or around [facility] Office 05/24/2021 [facility] None ? [...] BMI Blood Pressure 5 ft 2.5 in 179 lbs 32.2 kg/m2 121/78 mm[Hg] Results Lab Results None recorded. Allergies Code Code System Name Reaction Severity Onset [id number] RxNorm Lavender Rash ? ? (Lavandula
--- OUTSIDE RECORDS SUMMARY | 2021-03-17 01:56 | XMS_ITS | Encounter Summary ---
:1990 Author Reason for Visit None recorded. Assessment and Plan 1. IVF - in-vitro fertilization ? US, obstetric, biophysical profile Discussion Note: None recorded.Patient educational handouts: No information available. Plan of Care Reminders Provider Appointments Return to on or around [facility] Office 05/24/2021 [facility] None ? ? recorded. Referral None ? ? recorded. Procedures None ? ? recorded. Surgeries None ? ? recorded. Imaging US, 02/25/2021 [place] [facility], Biophysical Profile Medications Name Start Date ? ? ondansetron 4 mg disintegrating tablet ? Take 1 tablet every 4-6 hours as needed for nausea, place on top of the tongue where it will dissolve, then swallow. Vitamin 05/14/2020 Medications Administered None recorded. Vitals None recorded. Results Lab Results None recorded. Allergies Code Code System Name Reaction Severity Onset [id number] RxNorm Lavender Rash ? ? (Lavandula Angustifolia) Soap ? ? ? Problems
--- OUTSIDE RECORDS SUMMARY | 2021-03-17 01:56 | XMS_ITS | Encounter Summary ---
[...] recorded. Surgeries None ? ? recorded. Imaging 02/25/2021 [place] Non-stress Test Medications Name Start Date ? ? ondansetron 4 mg disintegrating tablet ? Take 1 tablet every 4-6 hours as needed for nausea, place on top of the tongue where it will dissolve, then swallow. Vitamin 05/14/2020 Medications Administered None recorded. Vitals None recorded. Results Lab Results None recorded. Allergies Code Code System Name Reaction Severity Onset [id number] RxNorm Lavender Rash ? ? (Lavandula Angustifolia) Soap ? ? ? Problems Name Status
--- OUTSIDE RECORDS SUMMARY | 2021-03-17 01:56 | XMS_ITS | Encounter Summary ---
:1990 Author Reason for Visit None recorded. Assessment and Plan 1. AND/OR placental disord er affecting management of mother ? US, obstetric, follow-up Discussion Note: None recorded.Patient educational handouts: No information available. Plan of Care Reminders Provider Appointments Return to on or around [facility] Office 05/24/2021 [facility] None ? ? recorded. Referral None ? ? recorded. Procedures None ? ? recorded. Surgeries None ? ? recorded. Imaging US, 02/10/2021 [place] [facility], Follow-up Medications Name Start Date ? ? ondansetron 4 mg disintegrating tablet ? Take 1 tablet every 4-6 hours as needed for nausea, place on top of the tongue where it will dissolve, then swallow. Vitamin 05/14/2020 Medications Administered None recorded. Vitals None recorded. Results Lab Results None recorded. Allergies Code Code System Name Reaction Severity Onset [id number] RxNorm Lavender Rash ? ? (Lavandula Angustifolia) Soap ? ? ? Problems
--- OUTSIDE RECORDS SUMMARY | 2021-03-17 01:56 | XMS_ITS | Encounter Summary ---
:1990 Author Reason for Visit OB visit OB [id number] EDC 03/23/2021 LMP 06/24/2020 Assessment and Plan Assessment Note Patient is 30___weeks . Dis cussed plan. 1. Routine care Discussion Note: None recorded.Patient educational handouts: No information available. Plan of Care Reminders Provider Appointments [facility] 05/[facility]21 [facility] [...] BMI Blood Pressure 5 ft 2.5 in 173 lbs 31.1 kg/m2 122/82 mm[Hg] Results Lab Results None recorded. Allergies Code Code System Name Reaction Severity Onset [id number] RxNorm Lavender Rash ? ? (Lavandula A
--- OUTSIDE RECORDS SUMMARY | 2021-03-17 01:56 | XMS_ITS | Encounter Summary ---
:1990 Author Reason for Visit OB visit 32wks Assessment and Plan 1. Routine care Discussion Note: None recorded.Patient educational handouts: No information available. Plan of Care Reminders Provider Appointments Return to on or around [facility] Office 05/24/2021 [facility] None [...] BMI Blood Pressure 5 ft 2.5 in 177 lbs 31.9 kg/m2 129/82 mm[Hg] Results Lab Results None recorded. Allergies Code Code System Name Reaction Severity Onset [id number] RxNorm Lavender Rash ? ? (Lavandula Angustifolia) Soap ? ? ? Problems
--- OUTSIDE RECORDS SUMMARY | 2021-03-17 01:56 | XMS_ITS | Encounter Summary ---
:1990 Author Reason for Visit OB visit OB [id number] EDC 03/23/2021 LMP 06/24/2020 this is IVF egg implanted 07/05/2020 Assessment and Plan Assessment Note Patient is _28__weeks . Dis cussed plan. 1. Routine care Discussion Note: None recorded.Patient educational handouts: No information available. Plan of Care Reminders Provider Appointments Return to on or around [facility] Office 05/24/2021 [facility] None ? [...] BMI Blood Pressure 5 ft 2.5 in 172 lbs 31 kg/m2 117/77 mm[Hg] Results Lab Results None recorded. Allergies Code Code System Name Reaction Severity Onset [id number] RxNorm Lavender Rash ? ? (Lavandula
--- OUTSIDE RECORDS SUMMARY | 2021-03-17 01:56 | XMS_ITS | Encounter Summary ---
:1990 Author Reason for Visit OB visit OB [id number] EDC 03/23/2021 LMP 06/24/2020 embryo transfer done 07/05/2020 Assessment and Plan Assessment Note Patient is _35__weeks . Dis cussed plan. 1. Routine care Discussion Note: None recorded.Patient educational handouts: No information available. Plan of Care Reminders Provider Appointments [facility] None ? [...] BMI Blood Pressure 5 ft 2.5 in 181 lbs 32.6 kg/m2 125/83 mm[Hg] Results Lab Results None recorded. Allergies Code Code System Name Reaction Severity Onset [id number] RxNorm Lavender Rash ? ? (Lavandula
--- OUTSIDE RECORDS SUMMARY | 2021-03-17 01:56 | XMS_ITS | Encounter Summary ---
:1990 Author Reason for Visit None recorded. Assessment and Plan 1. condition affecting obs tetrical care of mother ? US, obstetric, biophysical profile + non-stress test Discussion Note: None recorded.Patient educational handouts: No information available. Plan of Care Reminders Provider Appointments Return to on or around [facility] Office 05/24/2021 [facility] None ? ? recorded. Referral None ? ? recorded. Procedures None ? ? recorded. Surgeries None ? ? recorded. Imaging US, 02/18/2021 [place] [facility], Biophysical Profile + Non-stress Test Medications Name Start Date ? ? ondansetron 4 mg disintegrating tablet ? Take 1 tablet every 4-6 hours as needed for nausea, place on top of the tongue where it will dissolve, then swallow. Vitamin 05/14/2020 Medications Administered None recorded. Vitals None recorded. Results Lab Results None recorded. Allergies Code Code System Name Reaction Severity Onset [id number] RxNorm Lavender Rash ? ? (Lavandula Angustifolia)
--- OUTSIDE RECORDS SUMMARY | 2021-03-17 01:56 | XMS_ITS | Encounter Summary ---
:1990 Author Reason for Visit None recorded. Assessment and Plan None recorded.Discussion Note: None recorded.Patient educational handouts: No information [...] Code Code System Name Reaction Severity Onset [id number] RxNorm Lavender Rash ? ? (Lavandula Angustifolia) Soap ? ? ? Problems Name Status Onset Date Source ? History of Head Injury Active 05/14/2000 ? Active
[2021-03-17 02:20] LABS: Basophils Percent Auto 0.3 % (0.2-1.2); Eosinophils Absolute Auto 0.1 K/mm3 (0-0.3); Eosinophils Percent Auto 0.9 % (0-4.4); Hematocrit 30.9 % (37.0-47.0); Hemoglobin 9.5 g/dL (12.0-15.0); Immature Granulocyte Absolute 0.03 K/mm3 (0.00-0.031); Immature Granulocyte Percent A 0.3 % (0-0.5); Lymphocytes Absolute Auto 2.19 K/mm3 (0.9-3.2); Lymphocytes Percent Auto 25.3 % (18.3-44.2); Mean Corpuscular HGB Conc 30.7 g/dl (32-36); Mean Corpuscular Hemoglobin 23.3 pg (26-34); Mean Corpuscular Volume 75.9 fl (80-100); Mean Platelet Volume 10.7 fl (7.4-10.4); Monocytes Absolute Auto 0.6 K/mm3 (0.1-0.6); Monocytes Percent Auto 7.2 % (2.6-8.5); Neutrophils Absolute Auto 5.7 K/mm3 (1.3-6.7); Platelet Count Result 185 k/mm3 (150-375); Red Blood Count 4.07 M/mm3 (4.2-5.4); Red Cell Distribution Width 15.4 % (11.5-14.5); White Blood Count 8.7 K/mm3 (4.5-10.0)
[2021-03-17] MEDS: LACTATED RINGERS 1,000 ML 125 ML IV CONT ×3 (02:45→12:13)
[2021-03-17] MEDS: OXYTOCIN 30 UNITS/NS 500 ML 30 UNITS/500 ML BAG IV CONT (02:45)
--- NOTE | 2021-03-17 06:20 | WPDOBADMIT ---
Obstetrics - Admit Note Admission Note: record reviewed. No pertinent additions to the history and/or any subsequent changes in the physical findings that are not consistent with the expected course of the were found. IOL, suspected LGA, SVE /-2, AROM large amount of clear, odorless fluid, anticipate vaginal delivery Additions to the history and/or subsequent changes in the physical findings follow. None.
--- NOTE | 2021-03-17 08:41 | WPDANESEPPF ---
Anes - Initial Pre Proc Eval Date/Time: 03/17/21 08:41 Surgeon: Gatito Godinez MD Pre Op Diagnosis: induction of labor Patient Data Age: 31 Gender: F Height: 1.55 m Weight: 83 kg Last Vital Signs Temp 36.4 C L 03/17/21 06:30 Pulse 101 H 03/17/21 08:35 Resp 18 03/17/21 02:29 BP 122/77 03/17/21 08:35 Pulse Ox 97 03/17/21 08:36 Allergies Allergy/AdvReac Type Severity Reaction Status Date / Time lavender (Lavandula Allergy Hives Verified 02/21/21 11:34 angustifolia) TIDE (SOAP) Allergy Mild RASH Uncoded 02/21/21 11:34 Home Medications Medication Instructions Recorded Confirmed Type 1 tablet PO DAILY 12/09/20 03/17/21 History Laboratory Tests 03/17/21 03/17/21 03/17/21 02:14 02:14 02:14 WBC 8.7 K/mm3 K/mm3 (4.5-10.0) RBC 4.07 M/mm3 L M/mm3 (4.2-5.4) Hgb 9.5 g/dL L g/dL (12.0-15.0) Hct 30.9 % L % (37.0-47.0) MCV 75.9 fl L fl (80-100) MCH 23.3 pg L pg (26-34) MCHC 30.7 g/dl L g/dl (32-36) RDW 15.4 % H % (11.5-14.5) Plt Count 185 k/mm3 k/mm3 (150-375) MPV 10.7 fl H fl (7.4-10.4) Immature Gran % (Auto) 0.3 % % (0-0.5) Neut % (Auto) 66.0 % % (45.5-73.1) Lymph % (Auto) 25.3 % % (18.3-44.2) Fleming % (Auto) 7.2 % % (2.6-8.5) Eos % (Auto) 0.9 % % (0-4.4) Baso % (Auto) 0.3 % % (0.2-1.2) Lymph # (Auto) 2.19 K/mm3 K/mm3 (0.9-3.2) Fleming # (Auto) 0.6 K/mm3 K/mm3 (0.1-0.6) Eos # (Auto) 0.1 K/mm3 K/mm3 (0-0.3) Baso # (Auto) 0.0 K/mm3 K/mm3 (0.0-0.1) Abs Immat Gran (auto) 0.03 K/mm3 K/mm3 (0.00-0.031) Absolute Neuts (auto) 5.7 K/mm3 K/mm3 (1.3-6.7) Absolute Nucleated RBC 0.0 K/mm3 K/mm3 (0.0-0.012) Nucleated RBC % 0.0 % % (0.0-0.2) RPR Pending Blood Type O Negative Antibody Screen Negative Patient hx anesthesia problems: none Family hx anesthesia problems: none Results Review: All pre-operative results and documents have been reviewed as part of the pre-operative evaluation. [facility] Surgical History Surgical History History of cholecystectomy History of dilation and curettage Family History Family History Other Family history non-contributory Social History Social History Smoking status: Never smoker Substance use: never Gender identity (if verbalized by the patient): Female Spiritual care concerns: No Anes - Eval Final PreProcedure Day of Procedure 03/17/21 08:41 Patient weight: obese Neurological: alert and oriented ASA classification: II Emergent: no Anesthetic plan: proceed Anesthesia type and monitoring: regional epidural and standard monitoring Results Review: All pre-operative results and documents have been reviewed as part of the pre-operative evaluation. Informed Consent: The patient's anesthetic plan and its attendant risks and benefits were discussed with the patient/family/POA. Questions were solicited and answers provided to the satisfaction of the patient/family/POA.
[2021-03-17] MEDS: ONDANSETRON INJ 4 MG/2 ML VIAL IV PUSH (12:11)
[2021-03-17] MEDS: AMPICILLIN 2 GM/NS 100 ML 2 GM/100 ML BAG IVPB (12:37)
[2021-03-17] MEDS: miSOPROStol 200 MCG TABLET 800 MCG (13:55)
--- NOTE | 2021-03-17 13:58 | PM.OBPRVD ---
OB - Delivery Note Procedure Delivery date: 03/17/21 Procedure: vaginal events: No Care Intrapartal events: None and Febrile Induction method: AROM and per pitocin protocol Delivery monitor: external FHT and external uterine Route of delivery: Episiotomy description: None Laceration Description: None Specimen: Yes Anesthesia type: Epidural Disposition: floor [place] Baby Date of : 03/17/21 Time of : 13:44 Weeks of gestation at delivery: 39 gender: Male Weight (pounds): 8 Weight (ounces): 9 presentation: vertex position: Left Occiput Anterior Placenta delivery description: Spontaneous cord vessel description: 3 Vessels, Clamped/Cut and Delayed Cord Clamping score one minute: 8 score five minutes: 9 Narrative: mother and baby skin to skin in stable condition
[2021-03-17] MEDS: OXYTOCIN 30 UNITS/NS 500 ML 30 UNITS/500 ML BAG 125 UNITS IV CONT (14:26)
[2021-03-17 15:19] LABS: Rapid Plasma Reagin Non-Reactive (NonReactive)
[2021-03-17] MEDS: CLINDAMYCIN 600 MG/D5W 50 ML 600 MG/50 ML PIGGYBACK 100 MG IVPB (15:28)
[2021-03-17] MEDS: GENTAMICIN SULFATE INJ 310 MG in DEXTROSE 5% 100 ML 100 MG IVPB (15:55)
--- NOTE | 2021-03-17 16:31 | PC.NURSE ---
Patient transferred to post room #285 per wheelchair from labor and delivery. Support person present. Oriented to unit, room, information board, rooming in, admission packet and security measures. Patient verbalizes understanding.
[2021-03-17] MEDS: IBUPROFEN 600 MG TABLET PO (16:51)
[2021-03-17] MEDS: POLYSACCHARIDE IRON COMPLEX 150 MG CAPSULE PO (19:26)
[2021-03-17] MEDS: DOCUSATE SODIUM 100 MG CAPSULE PO (19:27)
[2021-03-18 03:25] LABS: Hematocrit 27.3 % (37.0-47.0); Hemoglobin 8.6 g/dL (12.0-15.0)
[2021-03-18 03:30] VITALS: BP 124/80; PULSE 76; RESP 18; TEMP 35.9; O2SAT 99
[2021-03-18 03:36] LABS: Estimated CRCL calculation 114 ml/min; Estimated Glomerular Filt Rate > 60
[2021-03-18 03:41] LABS: Gentamicin Random 0.8 ug/mL (5.0-12.0)
[2021-03-18] MEDS: DOCUSATE SODIUM 100 MG CAPSULE PO ×2 (06:51→18:04)
[2021-03-18] MEDS: POLYSACCHARIDE IRON COMPLEX 150 MG CAPSULE PO ×2 (06:51→18:04)
[2021-03-18] MEDS: IBUPROFEN 600 MG TABLET PO ×3 (06:52→22:33)
--- NOTE | 2021-03-18 07:46 | PM.OBPNVD ---
OB - PN: Subj Subjective Date/time seen: 03/18/21 07:46 Patient comments: no complaints baby status: doing well OB - PN: Obj Data Labs CBC & Chem 7: 03/18/21 03:11 03/18/21 03:11 Labs: Laboratory Results - last 24 hr 03/17/21 03/18/21 03/18/21 02:14 03:11 03:11 Hgb Hct Creatinine 0.60 L Estim Creat Clear Calc 114 Estimated GFR > 60 Random Gentamicin 0.8 L RPR Non-reactive 03/18/21 03:11 Hgb 8.6 L Hct 27.3 L Creatinine Estim Creat Clear Calc Estimated GFR Random Gentamicin RPR OB - PN A/P Plan day: 1 Plan: routine care Time Spent With Patient Time: Total time spent is greater than 50% in coordination of care (as documented) at patient's floor/unit and/or counseling patient: Review of Systems Review of Systems: All systems reviewed & are unremarkable except as noted in HPI and below Exam Narrative: afebrile Const: General: cooperative, healthy appearing and comfortable
[2021-03-18 08:00] VITALS: BP 112/66; PULSE 80; RESP 18; TEMP 35.9; O2SAT 98
[2021-03-18 11:45] VITALS: BP 124/85; PULSE 75; RESP 18; TEMP 36.6; O2SAT 98
[2021-03-18 19:36] VITALS: BP 110/68; PULSE 69; RESP 18; TEMP 36.5; O2SAT 100
[2021-03-19 07:15] VITALS: BP 127/87; PULSE 79; RESP 18; TEMP 36.4; O2SAT 98
[2021-03-19] MEDS: IBUPROFEN 600 MG TABLET PO (07:36)
[2021-03-19] MEDS: POLYSACCHARIDE IRON COMPLEX 150 MG CAPSULE PO (07:36)
[2021-03-19] MEDS: DOCUSATE SODIUM 100 MG CAPSULE PO (07:36)
--- NOTE | 2021-03-19 07:46 | PM.OBPNVD ---
OB - PN: Subj Subjective Date/time seen: 03/19/21 07:46 Patient comments: no complaints baby status: doing well OB - PN: Obj Data Labs CBC & Chem 7: 03/18/21 03:11 03/18/21 03:11 OB - PN A/P Plan day: 2 Plan: routine care and discharge home (F/U in 4 weeks) Time Spent With Patient Time: Total time spent is greater than 50% in coordination of care (as documented) at patient's floor/unit and/or counseling patient: Time with patient: less than 15 minutes Review of Systems Review of Systems: All systems reviewed & are unremarkable except as noted in HPI and below Exam Narrative: Fundus firm and vaginal flow controlled. No lower ext redness, warmth, or edema. Negative homans. Const: General: comfortable Chest: Breast/axilla inspection: normal inspection of the breasts Resp: Effort & Inspection: normal respiratory effort Cardio: Rate: regular rate GI: GI Palp: Yes Soft to palpation Psych: Appearance: grossly normal Affect: normal affect Attitude: cooperative Thought content: Yes Normal thought content present Judgement: Good judgement present (Psych)
[2021-03-21 09:47] VITALS: BP 128/91; PULSE 99; RESP 20; TEMP 36.7; O2SAT 99
--- NOTE | 2021-03-22 08:12 | PM.OBDSVD ---
DS: Admitting Diagnosis Discharge Date 03/19/21 Admitting Diagnosis Induction of labor OB - DS: Summary OB Procedures : None OB Procedures Intrapartum: Spontaneous Vag Delivery OB Procedures: : None Time Spent with Patient Time attestation: Total time spent providing and/or coordinating discharge services: DS: Data Data Completed and Pending Pending studies at discharge: Pending at discharge 03/17/21 23:00 Surgical [PTH] Routine Discharge Plan Discharge Attending physician on discharge: Sue Pruitt Consulting providers: Sue Pruitt ; Letty Rivero ; Tony Matthews Discharging Clinician: Letyt Rivero Patient Disposition: Home, Self-Care Activity: pelvic rest Diet: as tolerated Discharge Instructions: Education: Mom and Baby Guide Given to: Mother Follow-Up: Call your delivering provider's office for an appointment to be seen in: 4 Weeks Mom and baby should come to the [facility] for the follow-up appointment. Appointment Date/Time: March 21, 2021 at 10:00 am What to expect at your follow-up visit: Blood Pressure Check Physical Assessment Call [phone] if you are unable to keep your appointment time. BREAST CARE: * Wear a snug supportive bra. * For engorgement discomfort: Bottle Feeding: * May apply ice packs EPISIOTOMY/PERINEAL CARE: * Until bleeding stops, use your steven bottle after urinating * Change your pad frequently throughout the day * You may take sitz baths several times a day (fill your bathtub with warm water and soak for 20 minutes.) Do NOT bathe in the water * No tub baths until seen by your physician - You may shower ACTIVITY: * Rest as much as possible. * Do not exercise or lift anything heavier than your baby (such as laundry or other children.) * Avoid stairs or driving as much as possible. * Do not put anything into the vagina. No douching, tampons, or sexual activity until seen by physician. NOTIFY PHYSICIAN IF YOU HAVE ANY QUESTIONS OR IF ANY OF THE FOLLOWING SYMPTOMS OCCUR: * If your perineum becomes red, swollen, or more painful than what you have experienced in the hospital. * If your vaginal bleeding becomes foul smelling. * If your vaginal bleeding becomes more heavy than a period or if your bleeding changes from pink to bright red. However, you may pass an occasional walnut-sized clot once or twice for the first week . * If you experience a sharp, shooting pain in you calves. * If you discover a hard, reddened area on your breast or if you experience flu-like symptoms. *Temperature of 100.4 or higher DIET: * Eat regular, well-balanced meals. * Drink plenty of fluids daily. If , drink to thirst. Stand Alone Forms: General Discharge Information Follow-up/Referrals: Letty Rivero CNM [Certified Nurse Building Construction Ironworker] - Discharge Medications: Continued 28-800 mg-mcg Tablet 1 tablet PO DAILY RF: 0 Date of admission: 03/17/21 01:49 Primary Care Provider: PHYSICIAN,PRESCHOOL ASSISTANT PRINCIPAL Admitting Provider: Gatito Godinez Attending physician on admission: Gatito Godinez Condition: Stable
== END 2021-03-19 12:25 | disposition home or self-care (01) | DRG 560 ==
LOC: ANHLDR 01:53 → ANHOB2 16:37
PROVIDERS: Advanced Practice Midwife; Admitting Provider Obstetrics & Gynecology; Visit Provider Obstetrics & Gynecology
DX: O36.63X0 Maternal care for excessive fetal growth, third trimester, not applicable or unspecified (principal); Z37.0 Single live birth; Z3A.39 39 weeks gestation of pregnancy; O75.2 Pyrexia during labor, not elsewhere classified
CPT/HCPCS: 36415; 80170; 82565; 85014; 85018; 85025; 86592; 86850; 86900; 86901; 88307; A9270; J0290; J1580; J2405; J2590; J2795; J7120

== ENCOUNTER → 2021-07-16 00:04 | Outpatient (CLI) | payer OTHER, SELFPAY ==
[2021-07-16 12:28] LABS: SARS-CoV-2 RNA PCR Negative
== END ==
PROVIDERS: Visit Provider Obstetrics & Gynecology
DX: Z01.812 Encounter for preprocedural laboratory examination (principal); Z20.822 Contact with and (suspected) exposure to COVID-19
CPT/HCPCS: C9803; U0003; U0005

== ENCOUNTER 2021-07-19 01:33 | Day surgery (SDC) | payer OTHER, SELFPAY ==
--- NOTE | 2021-07-12 13:40 | PC.NURSE ---
Report to the Outpatient Waiting Room, entrance under the green pavilion located off [facility], at time _1000 on date _07/19/21 . OR Time: ____1200____. - You and your visitor will be asked a series of questions to screen for COVID 19 for your protection. - A mask is required within the hospital. Preoperative COVID Testing Requirements: No COVID Test needed if: (proof is required; if not received patient will have Rapid Test prior to entry) - Patient has received COVID Vaccine at least 14 days prior to procedure date or - Patient has positive COVID test result within last 90 days of surgery date. COVID Test needed if above criteria is not met If not COVID vaccinated a COVID test must be conducted within 72 hours of surgery and patient is asked to isolate self from time of testing until procedure. You will go to the [facility] for your COVID testing. The [facility] is located at the corner of [address] [facility]. You will only be called if COVID results are positive and your surgeon may reschedule your elective surgery date. Patients may have clear liquids (water, carbonated beverages, clear teas, apple juice) until 3 hours prior to surgery with a maximum of 20 ounces. - No food from midnight until time of surgery - Infants may have breast milk until 4 hours before surgery, formula 6 hours prior to surgery. - Children will be allowed to drink immediately following surgery. If applicable, please bring a bottle or sippy cup to assist with drinking. Juice, water, soda, and popsicles are readily available. For infants on formula, please bring formula the day of surgery. Pacifiers are allowed. Take the following medications with a SIP of water the morning of surgery: ____NONE Medications to discontinue per physician MVI AND IRON Date to take last dose___07/16/21 Please no make-up, nail northern irish, hairspray, perfume, deodorant, or body powder the day of surgery. No jewelry (including any body piercings) or valuables the day of surgery, leave them at home. Please take a shower or bath the night before, or the morning of, surgery with an antibacterial soap. Wear comfortable, loose fitting clothing. Children are encouraged to wear pajamas. - Jewelry must be removed prior to entering the operating room. Rings and piercings that are not removed may be cut off. - The hospital will not accept responsibility for valuables. - Please leave all valuables, including medications, at home the day of surgery. If you are going home after surgery, a licensed clark driver must drive you home. - NO public transportation without another adult. - We recommend that an adult stay with you for 24 hours following discharge. - We also recommend that you do not drive, make important decision, drink alcoholic beverages, or take any drugs that were not prescribed by your health care provider for at least 24 hours after your discharge time. For Pediatric surgeries, we recommend two adults accompany the child home (only one inside the building at this time). One visitor will be allowed to accompany the patient into the hospital. Patients visitor will be instructed to remain with patient at all times or leave the building. We will allow the visitor to come back to the postoperative area when patient is ready. Follow any additional instructions given to you from your surgeon. Telephone instructions given to __PATIENT and asked if any additional questions and then verbalized understanding. Patient advised to call surgeon office or pre surgery nurse liaison [phone] if any additional questions.
[2021-07-12 13:47] VITALS: BMI 29.1
--- NOTE | 2021-07-18 14:05 | WPDANESEPPF ---
Anes - Initial Pre Proc Eval Procedure: Operation Date: 07/19/21 12:00 Proposed Procedures p Hysteroscopy, Novasure Endometrial Ablation - Liza Vega MD Date/Time: 07/18/21 14:05 Surgeon: Liza Vega MD Pre Op Diagnosis: Menorrhagia Patient Data Age: 31 Gender: F Height: 1.55 m Weight: 70 kg Allergies Allergy/AdvReac Type Severity Reaction Status Date / Time No Known Allergies Allergy Verified 07/19/21 10:06 Home Medications Medication Instructions Recorded Confirmed Type 1 tablet PO DAILY 12/09/20 07/12/21 History ferrous sulfate [Slow Fe] 142 mg PO DAILY 07/12/21 07/12/21 History Patient hx anesthesia problems: none Family hx anesthesia problems: none Results Review: All pre-operative results and documents have been reviewed as part of the pre-operative evaluation. [facility] Past Medical History Medical History (Updated 07/19/21 @ 11:11 by Barak Ireland MD) Menorrhagia Obesity Surgical History Surgical History History of cholecystectomy History of dilation and curettage Family History Family History Other Family history non-contributory Social History Social History Smoking status: Never smoker Alcohol intake: current Drinks per week: 1 Substance use: never Living arrangements: with family Gender identity (if verbalized by the patient): Female Spiritual care concerns: No Anes - Eval Final PreProcedure Day of Procedure 07/18/21 14:05 Patient weight: overweight Heart: regular rate and rhythm Lungs: clear to auscultation and normal air movement Airway: Mallampati scale class II Neurological: alert and oriented Last oral intake: >/= 8 hours ASA classification: II Emergent: no Anesthetic plan: proceed Anesthesia type and monitoring: general GIVS and LMA Results Review: All pre-operative results and documents have been reviewed as part of the pre-operative evaluation. Informed Consent: The patient's anesthetic plan and its attendant risks and benefits were discussed with the patient/family/POA. Questions were solicited and answers provided to the satisfaction of the patient/family/POA.
[2021-07-19] MEDS: ACETAMINOPHEN 500 MG TABLET 1000 MG PO (10:12)
[2021-07-19 10:20] VITALS: BP 122/85; PULSE 84; RESP 16; TEMP 36.6; O2SAT 99
[2021-07-19] MEDS: LACTATED RINGERS 1,000 ML 30 ML IV CONT (10:36)
[2021-07-19 10:46] LABS: Hematocrit 41.6 % (37.0-47.0); Hemoglobin 13.2 g/dL (12.0-15.0)
--- NOTE | 2021-07-19 11:58 | PM.IMHP ---
H&P: HPI History of Present Illness Date/Time: 07/19/21 11:58 Chief Complaint: endometrial ablation Narrative: Margie is a 31yo who presents for ablation for menorrhagia. Taking iron. Hgb now stable, but was anemic. Had tubes tied. Sometimes periods longer than 2 weeks. Had one day used 16 tampons in one day. Review of Systems Review of Systems: All systems reviewed & are unremarkable except as noted in HPI and below PMFSH Past Medical History Medical History (Updated 07/19/21 @ 11:11 by Barak Ireland MD) Menorrhagia Obesity Surgical History Surgical History History of cholecystectomy History of dilation and curettage Family History Family History Other Family history non-contributory Social History Social History Smoking status: Never smoker Alcohol intake: current Drinks per week: 1 Substance use: never Living arrangements: with family Gender identity (if verbalized by the patient): Female Spiritual care concerns: No Meds Home Medications and Allergies Home Medications Medication Instructions Recorded Confirmed Type 1 tablet PO DAILY 12/09/20 07/12/21 History ferrous sulfate [Slow Fe] 142 mg PO DAILY 07/12/21 07/12/21 History Allergies Allergy/AdvReac Type Severity Reaction Status Date / Time No Known Allergies Allergy Verified 07/19/21 10:06 Vital Signs Vital Signs - 24 hr 07/19/21 10:20 Temperature 97.8 F Pulse Rate 84 Respiratory Rate 16 Blood Pressure 122/85 Pulse Oximetry 99 Exam Const: General: no acute distress Resp: Effort & Inspection: normal respiratory effort Auscultation: clear to auscultation bilaterally Cardio: Rate: regular rate Rhythm: regular rhythm GI: GI Palp: Yes Soft to palpation Extrem: General: normal to inspection H&P: Results Labs Labs: Short CBC 07/19/21 Range/Units 10:35 Hgb 13.2 D (12.0-15.0) g/dL Hct 41.6 (37.0-47.0) % Assessment and Plan Assessment and plan (1) Menorrhagia: Code(s): N92.0 - Excessive and frequent menstruation with regular cycle Status: Acute Assessment and Plan: Consented for HSC and endometrial ablation. Discussed RBA and questions answered. will proceed.
--- NOTE | 2021-07-19 12:00 | WPDHPUPDATE1 ---
History and Physical Update Update Date/Time: 07/19/21 12:00 History and Physical has been reviewed, including an updated exam of the patient. There are NO changes in the patient's condition. Risks, benefits, and alternatives have been discussed and questions answered. Patient agrees to proceed with procedure.
[2021-07-19] MEDS: BUPIVACAINE/EPINEPHRINE 0.25% 10 ML VIAL INFILTRATE (12:17)
--- NOTE | 2021-07-19 12:24 | SUR.OPER ---
Uterine measurement: L 4.5 W 4.4 Power: 109 Time: 2 minutes
[2021-07-19] MEDS: KETOROLAC 30 MG/ML VIAL (*BKC) IV PUSH (12:25)
--- NOTE | 2021-07-19 12:29 | W.PM.PROC2 ---
Procedure Note - Detailed Date of Procedure 07/19/21 Pre-op Diagnosis Menorrhagia Post-op Diagnosis Same Procedure Performed Hysteroscopy and Novasure endometrial ablation Surgeon Liza Vega MD Acute Care Nursing Assistant none Anesthesia MAC and Local Indications menorrhagia and/or menometrorrhagia Findings normal uterine cavity with fluffy endometrium Description of Procedure The patient was taken to the operating room and placed in supine position. She received MAC anesthesia and was placed in dorsal lithotomy position in stirrups. A speculum was placed and the anterior lip of the cervix was grasped with a single tooth tenaculum. A paracervical block of 10cc of 0.25% marcaine with epinephrine was done. The uterus sounded to 9cm and the cervix was 4.5cm long, giving a uterine cavity length of 4.5cm. The Novasure device was set to this length. The cervix was sequentially dilated to an 8 Phoebe. The hysteroscope was inserted and the cavity visualized and appeared to be normal. The Novasure device inserted through the cervix easily. The width measured 4.4cm. The device was activated and passed the cavity assessment. It ablated for 2 minutes. The device was removed, the hysteroscope was reinserted and the endometrium was noted to be blanched appropriately. The scope was once again removed. The tenaculum was removed and the cervix was made hemostatic with pressure. The speculum was removed. The patient was awakened from anesthesia and taken to the recovery room in stable condition. Estimated Blood Loss 5 Drains No Packing No Pathology None sent Complications No immediate complications Condition Stable Disposition Same day
[2021-07-19 12:33] VITALS: BP 118/68; PULSE 84; RESP 12; O2SAT 95
[2021-07-19 13:00] VITALS: BP 127/78; PULSE 63; RESP 16; O2SAT 97
[2021-07-19 13:30] VITALS: BP 119/72; PULSE 70; RESP 16
== END 2021-07-19 12:59 | disposition home or self-care (01) ==
PROVIDERS: Anesthesiology; Visit Provider Obstetrics & Gynecology
PROC: 0U5B8ZZ Destruction of Endometrium, Via Natural or Artificial Opening Endoscopic (ICD-10-PCS; CPT 58563; principal; 2021-07-19 12:00)
DX: N92.0 Excessive and frequent menstruation with regular cycle (principal)
CPT/HCPCS: 58563; 36415; 85014; 85018; A9270; J1100; J1885; J2250; J2405; J2704; J3010; J7030; J7120

== ENCOUNTER 2021-11-24 17:46 | Emergency (ER) | payer OTHER, SELFPAY ==
[2021-11-24 18:05] VITALS: BP 147/80; PULSE 99; RESP 64; TEMP 36.3; O2SAT 99
--- NOTE | 2021-11-24 18:06 | ED.GENADULT ---
HPI - General Adult General Chief complaint: Skin/Abscess/Foreign Body Stated complaint: bite Time Seen by Provider: 11/24/21 17:56 History of Present Illness HPI narrative: 31-year-old female presents the emergency room for evaluation of 3 insect bites to her left leg. Patient states that she saw a small winged insect fly off a tree and biter on her left leg and multiple spots 3 days ago. Patient states the areas of redness have increased in size and become tender to the touch. Related Data Home Medications Medication Instructions Recorded Confirmed vit no.133-ferrous 1 tablet PO DAILY 12/09/20 07/12/21 fumarate 28 mg-folic acid 800 mcg tablet () ferrous sulfate 142 mg (45 mg 142 mg PO DAILY 07/12/21 07/12/21 iron) tablet,extended release (Slow Fe) Allergies Allergy/AdvReac Type Severity Reaction Status Date / Time No Known Allergies Allergy Verified 07/19/21 10:06 Review of Systems Review of Systems: CONSTITUTIONAL: Denies fever, chills, or sweats. EYES: Denies visual changes, redness, or discharge. ENT: Denies rhinorrhea, congestion, sore throat, or otalgia. CARDIOVASCULAR: Denies chest pain, palpitations, or edema. RESPIRATORY: Denies cough or dyspnea. GASTROINTESTINAL: Denies abdominal pain, nausea, vomiting, or diarrhea. GENITOURINARY: Denies dysuria or hematuria. SKIN: Reports insect bites left MUSCULOSKELETAL: Denies back pain, joint pain, or myalgia. NEUROLOGIC: Denies headache, numbness, dizziness, or weakness. PSYCHIATRIC: Denies anxiety or depression. [facility], [facility] Past Medical History Medical History Menorrhagia Obesity Surgical History Surgical History History of cholecystectomy History of dilation and curettage Family History Family History Other Family history non-contributory Social History Social History Smoking status: Never smoker Alcohol intake: current Drinks per week: 1 Substance use: never Gender identity (if verbalized by the patient): Female Spiritual care concerns: No Exam Narrative: GENERAL: Well-appearing, well-nourished, no physical limitations, and in no acute distress. HEAD: Normocephalic, atraumatic. EYES: Conjunctivae normal, PERRLA and EOMI. CHEST: Clear to auscultation. No respiratory distress. No wheezes rales or rhonchi. No tenderness. HEART: Regular rate and rhythm. No murmur heard. Normal peripheral pulses. BACK: No CVA tenderness; No cervical/thoracic/lumbar tenderness, step-offs, bony abnormality; FROM EXTREMITIES: Normal range of motion. No edema. No clubbing or cyanosis SKIN: 3 erythematous quarter sized areas to left lower extremity. No noted centralized punctum dent. No notable signs of streaking NEURO: No focal deficits. Alert and oriented x3. MAEW. CN's II-XI intact bilaterally, normal gait PSYCH: Cooperative. Normal mood and affect. Discharge Plan Discharge Clinical Impression: Insect bite Patient Disposition: Home, Self-Care Condition: Stable Instructions: Antibiotic Form, Insect Bite or Sting (ED) Additional Instructions: May take Zyrtec or May during the day. Benadryl at night for the itching and allergic reaction to the insect sting. Begin taking your prednisone on Sunday morning. Prescriptions: New prednisone 20 mg tablet 40 mg PO DAILY 5 Days Qty: 10 0RF No Action 28-800 mg-mcg Tablet 1 tablet PO DAILY Slow Fe 142 mg (45 mg iron) Tablet Extended Release 142 mg PO DAILY Follow-up/Referrals: PHYSICIAN,CHIEF METEOROLOGIST [Primary Care Provider] - Time of Disposition: 18:10
== END 2021-11-24 18:33 | disposition home or self-care (01) ==
LOC: ANHED 18:16
PROVIDERS: Emergency Provider Nurse Practitioner Family
DX: S70.362A Insect bite (nonvenomous), left thigh, initial encounter (principal); E66.9 Obesity, unspecified; Z68.32 Body mass index [BMI] 32.0-32.9, adult; W57.XXXA Bitten or stung by nonvenomous insect and other nonvenomous arthropods, initial encounter
CPT/HCPCS: 96372; 99283; J1100

== ENCOUNTER 2021-12-14 14:51 | Emergency (ER) | payer OTHER, SELFPAY ==
[2021-12-14 14:53] VITALS: BP 131/82; PULSE 87; RESP 18; TEMP 36.4; O2SAT 99
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
[2021-12-14] MEDS: FAMOTIDINE 20 MG TABLET PO (16:14)
[2021-12-14] MEDS: predniSONE 20 MG TABLET 60 MG PO (16:15)
== END 2021-12-14 16:31 | disposition home or self-care (01) ==
LOC: ANHED 16:21
PROVIDERS: Emergency Provider Emergency Medicine
DX: T22.112A Burn of first degree of left forearm, initial encounter (principal); T31.0 Burns involving less than 10% of body surface; L25.9 Unspecified contact dermatitis, unspecified cause; X13.1XXA Other contact with steam and other hot vapors, initial encounter
CPT/HCPCS: 99283; A9270; J7512

== ENCOUNTER 2022-05-09 14:55 | Emergency (ER) | payer OTHER, SELFPAY ==
--- NOTE | ~2022-05-09 | XR_ITS ---
EXAM: XR finger 3rd LT min 2V DATE: 05/09/2022 17:04 HISTORY: pain proximal left 3rd finger x 2 weeks ? etiology . COMPARISON: 10/14/2018. FINDINGS: Normal mineralization. No fracture or dislocation. No lytic or blastic lesion. Joint space s are maintained. No erosion or periosteal change. Soft tissues within normal limits. IMPRESSION: Normal left third digit radiograph findings. Reviewed, dictated and finalized at location [facility]. [facility] [employer]
[2022-05-09 15:50] VITALS: BP 138/92; PULSE 65; RESP 16; TEMP 36.9; O2SAT 99
--- NOTE | 2022-05-09 16:35 | ED.UPPEXIN ---
HPI - Extremity Injury (Upper) General Chief Complaint: Extremity Injury, Upper Stated Complaint: pain left 3rd finger Time Seen by Provider: 05/09/22 16:35 Source: patient Mode of arrival: ambulatory Limitations: no limitations History of Present Illness HPI narrative: 32-year-old female presented for complaint of left middle finger pain for 2 weeks. She states she feels ?a bump? between the knuckle and first joint (proximal phalanx) and pain radiates to the index finger. She denies known injury. She has taken an occasional Tylenol, but states he does not like to take anything for pain. She uses her hands a lot for work and lives her 1-year-old frequently at home. She denies swelling, numbness, tingling, weakness, redness or bruising. No open wounds. Related Data Home Medications Medication Instructions Recorded Confirmed vit no.133-ferrous 1 tablet PO DAILY 12/09/20 05/09/22 fumarate 28 mg-folic acid 800 mcg tablet () ferrous sulfate 142 mg (45 mg 142 mg PO DAILY 07/12/21 05/09/22 iron) tablet,extended release (Slow Fe) Allergies Allergy/AdvReac Type Severity Reaction Status Date / Time No Known Allergies Allergy Verified 05/09/22 15:55 Review of Systems Review of Systems: CONSTITUTIONAL: Denies body aches, fever, chills EYES: Denies visual changes ENT: Denies rhinorrhea, congestion CARDIOVASCULAR: Denies chest pain, palpitations, or edema. RESPIRATORY: Denies cough or dyspnea. GASTROINTESTINAL: Denies abdominal pain, nausea, vomiting, or diarrhea. SKIN: Denies rash, itching, or wounds. MUSCULOSKELETAL: Per HPI NEUROLOGIC: Denies headache, numbness, tingling, or weakness. PSYCH: Denies depression or anxiety. All systems reviewed & are unremarkable except as noted in HPI and below PMFSH Past Medical History Medical History Menorrhagia Obesity Surgical History Surgical History History of cholecystectomy History of dilation and curettage Family History Family History Other Family history non-contributory Social History Social History Smoking status: Never smoker Alcohol intake: current Drinks per week: 1 Substance use: never Gender identity (if verbalized by the patient): Female Spiritual care concerns: No Comments At time of signature, I have reviewed and agree with nursing past medical, surgical, social and family history unless otherwise noted. Please see nursing chart for further information. There is no relevant family history pertinent to the presenting complaint Exam Narrative: GENERAL: Well-appearing CHEST: Speaks in full sentences. No respiratory distress. HEART: Regular rate and rhythm. Normal and equal peripheral pulses. EXTREMITIES: Left hand with normal strength and sensation, normal range of motion but endorses pain with movement of the 3rd digit. Reports tenderness with palpation to 3rd proximal phalanx. No edema or ecchymosis. No open wounds or obvious deformity; alignment normal, pulse palpable and equal bilaterally, skin warm, dry, pink. Capillary refill less than 3 seconds. SKIN: Warm, dry, no rash. NEURO: Alert and oriented x3. PSYCH: Normal mood and affect Course Course Emergency Course: Patient is aware of diagnosis, understands and agrees to treatment plan. Anticipatory guidance given. Patient agrees to follow-up as directed and is aware of reasons to seek care at the emergency department. Portions of this record may have been created with voice recognition software Level of Care: Express Care Visit Vital Signs Vital signs: Vital Signs Temperature 98.5 F 05/09/22 15:50 Pulse Rate 65 05/09/22 15:50 Respiratory Rate 16 05/09/22 15:50 Blood Pressure 138/92 H 05/09/22 15:50 Puls
== END 2022-05-09 17:19 | disposition home or self-care (01) ==
PROVIDERS: Emergency Provider Nurse Practitioner Family
DX: M79.645 Pain in left finger(s) (principal); E66.9 Obesity, unspecified; Z68.31 Body mass index [BMI] 31.0-31.9, adult
CPT/HCPCS: 73140; 99213; G0463

== ENCOUNTER 2022-12-14 11:05 | Emergency (ER) | payer OTHER, SELFPAY ==
--- NOTE | ~2022-12-14 | CT_ITS ---
Non-contrast Head CT History: Dizziness Technique: Axial non-contrast imaging of the brain was performed. Dose reduction technique was used on this scan by utilizing automated exposure control and iterative reconstruction technique. The dose -length product (DLP) was 605.33 mGy-cm. Findings: There is no evidence of intracranial hemorrhage, mass lesion, or acute infarct. There is c hronic encephalomalacia in the bilateral frontal regions, right more extensive than left. The ventri cles and subarachnoid spaces are normal in size. Evidence of prior frontal craniotomy noted. The vis ualized paranasal sinuses and mastoid air cells are clear. Impression: No acute abnormality. Bifrontal encephalomalacia, right more extensive than left, which is most likely posttraumatic and/or postsurgical in nature. Reviewed, dictated and finalized at [facility]. Impression: No acute abnormality. Bifrontal encephalomalacia, right more extensive than left, which is most likel y posttraumatic and/or postsurgical in nature.
--- NOTE | ~2022-12-14 | CT_ITS ---
EXAMINATION: CT abdomen pelvis w con DATE: 12/14/2022 13:19 INDICATION: Epigastric abdominal pain. Nausea. TECHNIQUE: Computed tomography (CT) of the abdomen and pelvis was performed with 100 mL Omnipaque 350 intravenous contrast. Automated exposure control and iterative reconstruction technique were employe d. The dose-length product was 540.19 mGy-cm. COMPARISON: None. FINDINGS: The visualized portions of the lung bases demonstrate mild atelectasis. No pleural effusion . The heart size is normal. No pericardial effusion. The liver and spleen are normal. There are kate es of cholecystectomy. The pancreas, adrenal glands, and kidneys are normal. There are no dilated loo ps of bowel. The appendix is normal. There are no pathologically enlarged lymph nodes. There is no fr ee intraperitoneal fluid. There are chronic bilateral L5 pars defects. There is mild lumbar spondylos is. IMPRESSION: 1. No etiology for the patient's symptoms. Reviewed, dictated and finalized at location [facility].
[2022-12-14 11:33] VITALS: BP 142/87; PULSE 86; RESP 18; TEMP 36.6; O2SAT 100
--- NOTE | 2022-12-14 11:39 | ECG_ITS ---
Measurements Intervals [place] Rate: 69 P: 57 [place]: 147 QRS: -10 QRSD: 93 T: 32 QT: 383 QTc: 412 Interpretive Statements SINUS RHYTHM WITH SINUS ARRHYTHMIA NOR NORMAL ELECTROCARDIOGRAM COMPARED TO ECG 05/21/2019 11:24:05 NO DIFFERENCE Electronically Signed On 12-15-2022 12:44:50 CDT by Luis Celeste M.D.
--- NOTE | 2022-12-14 12:29 | ED.ABDPAIN ---
HPI - Abdominal Pain General Chief Complaint: Abdominal Pain Stated Complaint: abdominal pain [id number], nausea Time Seen by Provider: 12/14/22 12:09 Source: patient Mode of arrival: ambulatory Limitations: no limitations History of Present Illness HPI narrative: This is a 32 year old female that presents to the ER for epigastric abdominal pain ongoing over the last couple of weeks. Associated with nausea. Reports some dizziness and headache as well. Reports some diarrhea yesterday. Denies fever, chest pain, shortness of breath, vomiting, dysuria, or hematuria. Related Data Home Medications Medication Instructions Recorded Confirmed vit no.133-ferrous 1 tablet PO DAILY 12/09/20 05/09/22 fumarate 28 mg-folic acid 800 mcg tablet () ferrous sulfate 142 mg (45 mg 142 mg PO DAILY 07/12/21 05/09/22 iron) tablet,extended release (Slow Fe) Allergies Allergy/AdvReac Type Severity Reaction Status Date / Time No Known Allergies Allergy Verified 12/14/22 12:12 Review of Systems Review of Systems: CONSTITUTIONAL: Denies fever CARDIOVASCULAR: Denies chest pain, or edema. RESPIRATORY: Denies cough or dyspnea. GASTROINTESTINAL: Reports abdominal pain, nausea. Denies vomiting GENITOURINARY: Denies dysuria or hematuria. NEUROLOGIC: Reports headache. Denies numbness, or weakness. All systems reviewed & are unremarkable except as noted in HPI and below PMFSH Past Medical History Medical History Menorrhagia Obesity Surgical History Surgical History History of cholecystectomy History of dilation and curettage Family History Family History Other Family history non-contributory Social History Social History Smoking status: Never smoker Alcohol intake: current Drinks per week: 1 Substance use: never Living arrangements: with family Gender identity (if verbalized by the patient): Female Spiritual care concerns: No Exam Narrative: GENERAL: Well-appearing, well-nourished, and in no acute distress. HEAD: Normocephalic, atraumatic. Large scar noted over the right side of the forehead EYES: PERRLA and EOMI. ENT: Nares clear, no rhinorrhea or epistaxis. Mucous membranes moist. Oropharynx without tonsillar hypertrophy exudate or other lesions. Bilateral TMs pearly landeros non-bulging NECK: Supple. No adenopathy or masses. CHEST: Clear to auscultation. No respiratory distress. No wheezes rales or rhonchi HEART: Regular rate and rhythm. No murmur heard. Normal peripheral pulses. ABDOMEN: Soft, nontender, nondistended, normal active bowel sounds. EXTREMITIES: Normal range of motion. No edema. Strength equal in bilateral upper and lower extremities (5/5) SKIN: Warm, dry, no rash. NEURO: No focal deficits. Alert and oriented x3. Cranial nerves II through XII grossly intact. Normal gait PSYCH: Normal mood and affect Course Course Emergency Course: Patient was updated on work-up and agrees with plan of care Vital Signs Vital signs: Vital Signs Temperature 97.8 F 12/14/22 11:33 Pulse Rate 86 12/14/22 11:33 Respiratory Rate 18 12/14/22 11:33 Blood Pressure 142/87 H 12/14/22 11:33 Pulse Oximetry 100 12/14/22 11:33 Oxygen Delivery Room Air 12/14/22 11:33 Temperature 97.8 F 12/14/22 11:33 Pulse Rate 85 12/14/22 12:51 Respiratory Rate 15 12/14/22 12:51 Blood Pressure 130/86 12/14/22 12:51 Pulse Oximetry 100 12/14/22 12:51 Oxygen Delivery Room Air 12/14/22 11:33 MDM - Abdominal Pain MDM Narrative Medical decision making narrative: Patient presents to the emergency department with multiple complaints. Reporting epigastric abdominal discomfort and nausea. Also reporting a headache and dizziness. She is a
[2022-12-14 12:31] LABS: Basophils Percent Auto 0.4 % (0.2-1.2); Eosinophils Absolute Auto 0.1 K/mm3 (0-0.3); Eosinophils Percent Auto 0.8 % (0-4.4); Hematocrit 41.4 % (37.0-47.0); Hemoglobin 13.3 g/dL (12.0-15.0); Immature Granulocyte Absolute 0.02 K/mm3 (0.00-0.031); Immature Granulocyte Percent A 0.3 % (0-0.5); Lymphocytes Absolute Auto 1.88 K/mm3 (0.9-3.2); Lymphocytes Percent Auto 25.1 % (18.3-44.2); Mean Corpuscular HGB Conc 32.1 g/dl (32-36); Mean Corpuscular Hemoglobin 26.9 pg (26-34); Mean Corpuscular Volume 83.6 fl (80-100); Mean Platelet Volume 10.3 fl (7.4-10.4); Monocytes Absolute Auto 0.5 K/mm3 (0.1-0.6); Monocytes Percent Auto 7.2 % (2.6-8.5); Neutrophils Percent Auto 66.2 % (45.5-73.1); Platelet Count Result 285 k/mm3 (150-375); Red Blood Count 4.95 M/mm3 (4.2-5.4); Red Cell Distribution Width 14.1 % (11.5-14.5); White Blood Count 7.5 K/mm3 (4.5-10.0)
[2022-12-14 12:40] LABS: Lipase 51 U/L (23-300)
[2022-12-14 12:42] LABS: Alanine Aminotransferase 17 U/L (6-35); Albumin Level 4.9 g/dL (3.5-5.1); Alkaline Phosphatase 65 U/L (38-126); Anion Gap 10 mmol/L (8-16); Aspartate Amino Transferase 22 U/L (14-36); Bilirubin,Total 0.5 mg/dL (0.2-1.3); Blood Urea Nitrogen 9 mg/dL (7-17); Calcium 9.2 mg/dL (8.4-10.2); Carbon Dioxide 27 mmol/L (22-30); Chloride 105 mmol/L (98-107); Estimated CRCL calculation 83 ml/min; Estimated Glomerular Filt Rate > 60; Glucose 99 mg/dL (65-110); Potassium 3.6 mmol/L (3.4-5.0); Sodium 142 mmol/L (137-145)
[2022-12-14] MEDS: ONDANSETRON INJ 4 MG/2 ML VIAL IV PUSH (12:48)
[2022-12-14] MEDS: SODIUM CHLORIDE 0.9% IV 1,000 ML 999 ML IV CONT (12:48)
[2022-12-14 12:51] VITALS: BP 130/86; PULSE 85; RESP 15; O2SAT 100
[2022-12-14] MEDS: FAMOTIDINE 20 MG/2 ML VIAL IV PUSH (13:00)
[2022-12-14 13:04] LABS: Appearance Urine Clear (Clear); Bacteria Urine None Seen /hpf; Bilirubin Urine Negative (Negative); Blood Urine Negative (Negative); Color Urine Yellow (Yellow); Glucose Urine UA Negative (Negative); Ketones Urine Negative (Negative); Leukocyte Esterase Ur Trace LEU/UL (Negative); Nitrate Urine Negative (Negative); Non Pathogenic Casts 0-2; Protein Urine Negative (Negative); RBC Urine 0-2 /hpf (0-2); Specific Grav Ur 1.011 (1.001-1.035); Squamous Epithelial Cell Urine None seen /hpf (Few); WBC Urine 0-5 /hpf
[2022-12-14 13:11] LABS: Add Urine Microscopic? YES
[2022-12-14] MEDS: ACETAMINOPHEN 500 MG TABLET 1000 MG PO (14:24)
[2022-12-14 14:43] VITALS: BP 121/89; PULSE 73; RESP 13; O2SAT 99
== END 2022-12-14 14:48 | disposition home or self-care (01) ==
PROVIDERS: General Practice; Emergency Provider Physician Assistant
DX: R10.13 Epigastric pain (principal); R42 Dizziness and giddiness; E66.9 Obesity, unspecified; Z68.32 Body mass index [BMI] 32.0-32.9, adult; Z90.49 Acquired absence of other specified parts of digestive tract
CPT/HCPCS: 36415; 70450; 74177; 80053; 81001; 81025; 83690; 85025; 93005; 96361; 96374; 96375; 99284; A9270; J2405; J7030; Q9967

== ENCOUNTER 2022-12-24 11:31 | Emergency (ER) | payer OTHER, SELFPAY ==
[2022-12-24] VITALS (8 sets, daily range): BP systolic 125–143; BP diastolic 70–98; PULSE 56–73; RESP 15–20; TEMP 36.2–36.6; O2SAT 100
[2022-12-24 11:51] LABS: Basophils Percent Auto 0.4 % (0.2-1.2); Eosinophils Absolute Auto 0.1 K/mm3 (0-0.3); Eosinophils Percent Auto 0.8 % (0-4.4); Hematocrit 43.2 % (37.0-47.0); Hemoglobin 13.7 g/dL (12.0-15.0); Immature Granulocyte Absolute 0.02 K/mm3 (0.00-0.031); Immature Granulocyte Percent A 0.3 % (0-0.5); Lymphocytes Absolute Auto 2.49 K/mm3 (0.9-3.2); Lymphocytes Percent Auto 35.2 % (18.3-44.2); Mean Corpuscular HGB Conc 31.7 g/dl (32-36); Mean Corpuscular Hemoglobin 27.1 pg (26-34); Mean Corpuscular Volume 85.5 fl (80-100); Mean Platelet Volume 10.1 fl (7.4-10.4); Monocytes Absolute Auto 0.4 K/mm3 (0.1-0.6); Monocytes Percent Auto 5.8 % (2.6-8.5); Neutrophils Absolute Auto 4.1 K/mm3 (1.3-6.7); Neutrophils Percent Auto 57.5 % (45.5-73.1); Platelet Count Result 303 k/mm3 (150-375); Red Blood Count 5.05 M/mm3 (4.2-5.4); Red Cell Distribution Width 13.8 % (11.5-14.5); White Blood Count 7.1 K/mm3 (4.5-10.0)
[2022-12-24 11:52] LABS: Appearance Urine Clear (Clear); Bilirubin Urine Negative (Negative); Blood Urine Negative (Negative); Color Urine Yellow (Yellow); Glucose Urine UA Negative (Negative); Ketones Urine Negative (Negative); Leukocyte Esterase Ur Negative LEU/UL (Negative); Nitrate Urine Negative (Negative); Protein Urine Negative (Negative); Specific Grav Ur 1.003 (1.001-1.035); Urobilinogen Urine 0.2 mg/dL (<2.0)
[2022-12-24 12:01] LABS: Add Urine Microscopic? NO
[2022-12-24 12:03] LABS: Alanine Aminotransferase 22 U/L (6-35); Albumin Level 4.9 g/dL (3.5-5.1); Alkaline Phosphatase 55 U/L (38-126); Anion Gap 8 mmol/L (8-16); Aspartate Amino Transferase 26 U/L (14-36); Bilirubin,Total 0.4 mg/dL (0.2-1.3); Blood Urea Nitrogen 8 mg/dL (7-17); Calcium 9.4 mg/dL (8.4-10.2); Carbon Dioxide 27 mmol/L (22-30); Chloride 104 mmol/L (98-107); Estimated CRCL calculation 86 ml/min; Estimated Glomerular Filt Rate > 60; Glucose 86 mg/dL (65-110); Lipase 62 U/L (23-300); Potassium 3.8 mmol/L (3.4-5.0); Sodium 139 mmol/L (137-145)
--- NOTE | 2022-12-24 13:01 | ED.ABDPAIN ---
HPI - Abdominal Pain General Chief Complaint: Abdominal Pain Stated Complaint: abdominal pain/back/shoulder pain Time Seen by Provider: 12/24/22 12:09 History of Present Illness HPI narrative: Patient is a 32-year-old female presenting with epigastric pain. Patient states that she was seen here about a week ago with abdominal pain. She was discharged home and advised to follow-up with primary care. She followed up with primary care who tried to schedule her with a GI doctor. States that they would like her to get a scope to evaluate for ulcers. Patient states that over the last day she has had worsening epigastric pain that radiates into her back and up to her left shoulder. Reports nausea but no vomiting. She is tolerating p.o. intake. No fevers or chills, chest pain, shortness of breath, dysuria, leg swelling. Reports a few episodes of diarrhea. Related Data Home Medications Medication Instructions Recorded Confirmed vit no.133-ferrous 1 tablet PO DAILY 12/09/20 05/09/22 fumarate 28 mg-folic acid 800 mcg tablet () ferrous sulfate 142 mg (45 mg 142 mg PO DAILY 07/12/21 05/09/22 iron) tablet,extended release (Slow Fe) Allergies Allergy/AdvReac Type Severity Reaction Status Date / Time No Known Allergies Allergy Verified 12/14/22 12:12 Review of Systems Review of Systems: All systems reviewed & are unremarkable except as noted in HPI and below PMFSH Past Medical History Medical History Menorrhagia Obesity Surgical History Surgical History History of cholecystectomy History of dilation and curettage Family History Family History Other Family history non-contributory Social History Social History Smoking status: Never smoker Alcohol intake: current Drinks per week: 1 Substance use: never Living arrangements: with family Gender identity (if verbalized by the patient): Female Spiritual care concerns: No Exam Narrative: GENERAL: Well-appearing, well-nourished, and in no acute distress. HEAD: Normocephalic, atraumatic. EYES: PERRLA and EOMI. ENT: Nares clear, no rhinorrhea or epistaxis. Mucous membranes moist. NECK: Supple. CHEST: Clear to auscultation. No respiratory distress. HEART: Regular rate and rhythm ABDOMEN: Soft, mild tenderness upper abdomen without guarding or rebound EXTREMITIES: Left shoulder is diffusely tender with palpation extending into the left trapezius muscle; ROM intact, distal pulses are normal SKIN: Warm, dry, no rash. NEURO: No focal deficits. Alert and oriented x3. PSYCH: Normal mood and affect. Course Vital Signs Vital signs: Vital Signs Temperature 97.2 F L 12/24/22 11:32 Pulse Rate 65 12/24/22 11:32 Respiratory Rate 20 12/24/22 11:32 Blood Pressure 143/91 H 12/24/22 11:32 Pulse Oximetry 100 12/24/22 11:32 Oxygen Delivery Room Air 12/24/22 11:32 Temperature 97.8 F 12/24/22 14:25 Pulse Rate 60 12/24/22 14:25 Respiratory Rate 15 12/24/22 14:25 Blood Pressure 128/72 12/24/22 14:25 Pulse Oximetry 100 12/24/22 14:01 Oxygen Delivery Room Air 12/24/22 11:32 MDM - Abdominal Pain MDM Narrative Medical decision making narrative: Patient is a 32-year-old female presenting with epigastric pain radiating to her shoulder. Vitals are stable. Exam remarkable for the above. Patient just had a CT last week, do not feel that repeat imaging is warranted at this time as her symptoms are similar to her prior symptoms. Would like to avoid further radiation given her age as well. Plan for labs, fluids, Zofran, Pepcid. Shoulder pain seems musculoskeletal given the tenderness on exam. Blood work is unremarkable. No leukocytosis. Normal electrolytes. Normal lipase
[2022-12-24] MEDS: LACTATED RINGERS 1,000 ML 999 ML IV CONT (13:11)
[2022-12-24] MEDS: ONDANSETRON INJ 4 MG/2 ML VIAL IV PUSH (13:11)
[2022-12-24] MEDS: FAMOTIDINE 20 MG/2 ML VIAL IV PUSH (13:11)
[2022-12-24] MEDS: KETOROLAC 15 MG/ML VIAL (*BKC) IV PUSH (14:13)
== END 2022-12-24 15:17 | disposition home or self-care (01) ==
PROVIDERS: Preventive Medicine Aerospace Medicine; Emergency Provider Emergency Medicine
DX: R10.13 Epigastric pain (principal); R11.0 Nausea; M25.512 Pain in left shoulder; E66.9 Obesity, unspecified; Z68.31 Body mass index [BMI] 31.0-31.9, adult; Z90.49 Acquired absence of other specified parts of digestive tract
CPT/HCPCS: 36415; 80053; 81003; 81025; 83690; 85025; 96361; 96374; 96375; 99284; J1885; J2405; J7120

== ENCOUNTER 2023-01-09 09:05 | Outpatient (CLI) | payer OTHER, SELFPAY ==
--- NOTE | ~2023-01-09 | US_ITS ---
Abdominal Sonogram: Real-time sonographic imaging of the abdomen was performed. Clinical History: Abdominal pain Findings: The liver appears normal with no evidence of mass lesion or bile duct dilatation. Main por patricia vein demonstrates normal direction of flow. The spleen is normal in size without evidence of foca l lesion. The gallbladder is absent, compatible prior cholecystectomy. The common bile duct measures 4 mm. The visualized pancreas, aorta, and IVC are unremarkable. The right kidney measures 10.2 cm in length and the left kidney measures 10.2 cm. There is no hydronephrosis or renal calculus. Impression: Status post cholecystectomy, otherwise unremarkable exam. Reviewed, dictated and finalized at location [facility]. Impression: Status post cholecystectomy, otherwise unremarkable exam.
== END 2023-01-09 09:06 | disposition home or self-care (01) ==
PROVIDERS: PCP Emergency Medicine; Visit Provider Emergency Medicine
DX: R10.11 Right upper quadrant pain (principal); R10.12 Left upper quadrant pain; Z90.49 Acquired absence of other specified parts of digestive tract
CPT/HCPCS: 76700

== ENCOUNTER 2023-01-25 01:40 | Day surgery (SDC) | payer OTHER, SELFPAY ==
[2023-01-10 15:02] VITALS: BMI 31.4
[2023-01-25 10:08] VITALS: BP 123/72; PULSE 51; RESP 16; TEMP 36.4; O2SAT 100
[2023-01-25] MEDS: LACTATED RINGERS 1,000 ML 150 ML IV CONT (10:12)
--- NOTE | 2023-01-25 10:21 | WPDHPUPDATE1 ---
History and Physical Update Update Date/Time: 01/25/23 10:21 Patient continues with atypical epigastric pain. Not specifically related to meals. She states it is constant rated 8 but poorly described. No response to H2 nor PPI therapy. EGD to be performed today. History and Physical has been reviewed, including an updated exam of the patient. There are NO changes in the patient's condition. Risks, benefits, and alternatives have been discussed and questions answered. Patient agrees to proceed with procedure.
--- NOTE | 2023-01-25 10:28 | WPDANESEPPF ---
Anes - Initial Pre Proc Eval Procedure: Operation Date: 01/25/23 11:30 Proposed Procedures p Esophagogastroduodenoscopy - Jared Jarvis MD Date/Time: 01/25/23 10:28 Surgeon: Jared Jarvis MD Pre Op Diagnosis: epigastric pain, nausea Patient Data Age: 32 Gender: F Height: 1.57 m Weight: 75.8 kg Last Vital Signs Temp 36.4 C L 01/25/23 10:08 Pulse 51 L 01/25/23 10:08 Resp 16 01/25/23 10:08 BP 123/72 01/25/23 10:08 Pulse Ox 100 01/25/23 10:08 O2 Del Method Room Air 01/25/23 10:08 Allergies Allergy/AdvReac Type Severity Reaction Status Date / Time No Known Allergies Allergy Verified 01/25/23 10:06 Home Medications Medication Instructions Recorded Confirmed Type vit no.133-ferrous 1 tablet PO DAILY 12/09/20 01/25/23 History fumarate 28 mg-folic acid 800 mcg tablet () ondansetron HCl 4 mg tablet 4 mg PO DAILY PRN nausea and 12/24/22 01/25/23 Rx vomiting 5 days #20 tabs pantoprazole 40 mg tablet,delayed 40 mg PO QAM 1 month #30 tabs 01/03/23 01/25/23 Rx release ubidecarenone-omega 3-vit E 25 1 cap PO DAILY 01/03/23 01/25/23 History mg-150 (90-60) mg-200 unit capsule (Co N-48-Thtqyzi E-Fish Oil) Patient hx anesthesia problems: none Family hx anesthesia problems: none Results Review: All pre-operative results and documents have been reviewed as part of the pre-operative evaluation. [facility] Past Medical History Medical History Menorrhagia Obesity Surgical History Surgical History History of cholecystectomy History of dilation and curettage History of facial surgery Family History Family History Other Family history non-contributory Social History Social History Smoking status: Never smoker Alcohol intake: current Drinks per week: 1 Substance use: never Living arrangements: with family Gender identity (if verbalized by the patient): Female Spiritual care concerns: No Anes - Eval Final PreProcedure Day of Procedure 01/25/23 10:28 Patient weight: overweight Heart: regular rate and rhythm Lungs: clear to auscultation Airway: Mallampati scale class II Neurological: alert and oriented Last oral intake: >/= 8 hours ASA classification: II Emergent: no Anesthetic plan: proceed Anesthesia type and monitoring: general GIVS and standard monitoring Results Review: All pre-operative results and documents have been reviewed as part of the pre-operative evaluation. Informed Consent: The patient's anesthetic plan and its attendant risks and benefits were discussed with the patient/family/POA. Questions were solicited and answers provided to the satisfaction of the patient/family/POA.
[2023-01-25 11:30] VITALS: BP 119/77; PULSE 56; RESP 22; O2SAT 100
[2023-01-25 11:40] VITALS: BP 118/64; PULSE 53; RESP 14; O2SAT 100
[2023-01-25 11:50] VITALS: BP 121/81; PULSE 58; RESP 19; O2SAT 100
== END 2023-01-25 12:01 | disposition home or self-care (01) ==
PROVIDERS: PCP Emergency Medicine; Visit Provider Internal Medicine Gastroenterology
PROC: 0DJ08ZZ Inspection of Upper Intestinal Tract, Via Natural or Artificial Opening Endoscopic (ICD-10-PCS; CPT 43235; principal; 2023-01-25 11:30)
DX: R10.13 Epigastric pain (principal)
CPT/HCPCS: 43239; 87081; J2704; J7120

== ENCOUNTER 2023-01-29 08:42 | Emergency (ER) | payer OTHER, SELFPAY ==
[2023-01-29 08:47] VITALS: BP 130/86; PULSE 56; RESP 16; TEMP 36.4; O2SAT 99
[2023-01-29 09:02] VITALS: BP 123/93; PULSE 60; RESP 16; O2SAT 99
--- NOTE | 2023-01-29 09:42 | ED.ALLEREA ---
HPI - Allergic Reaction General Chief complaint: Allergic Reaction Stated complaint: allergic reaction Time Seen by Provider: 01/29/23 09:01 History of Present Illness HPI narrative: 32-year-old female reports for evaluation for erythematous pruritic rash to her forearms x2 days. Patient states 2 days ago, she was given a sweatshirt, put it on and shortly after broke out in the rash. States she took a sweatshirt off and then put it on again yesterday and again broke out in the same rash. She states she realized that she is likely allergic to the detergent that was used to watch a sweatshirt and asked the escrow secretary to give this which he said he had a question in [place] which she has a known allergy to. States this is happened many times in the past and she usually is treated with IM steroids and antihistamines. She denies lip or tongue swelling, difficulty breathing, nausea or vomiting. States she was wearing a T-shirt under the sweatshirt and so the only areas exposed to her forearms which are the only areas that broke out in the rash. Related Data Home Medications Medication Instructions Recorded Confirmed vit no.133-ferrous 1 tablet PO DAILY 12/09/20 01/25/23 fumarate 28 mg-folic acid 800 mcg tablet () ubidecarenone-omega 3-vit E 25 1 cap PO DAILY 01/03/23 01/25/23 mg-150 (90-60) mg-200 unit capsule (Co [id number]-Wzcewnj E-Fish Oil) Allergies Allergy/AdvReac Type Severity Reaction Status Date / Time No Known Allergies Allergy Verified 01/29/23 08:52 Review of Systems Review of Systems: CONSTITUTIONAL: Denies fever, chills EYES: Denies visual changes, redness, or discharge. ENT: Denies rhinorrhea, congestion, sore throat, or otalgia. CARDIOVASCULAR: Denies chest pain, palpitations, or edema. RESPIRATORY: Denies cough or dyspnea. GASTROINTESTINAL: Denies abdominal pain, nausea, vomiting, or diarrhea. GENITOURINARY: Denies dysuria or hematuria. SKIN: See HPI MUSCULOSKELETAL: Denies back pain, joint pain, or myalgia. NEUROLOGIC: Denies headache, numbness, dizziness, or weakness. PSYCHIATRIC: Denies anxiety or depression. [facility] Past Medical History Medical History Menorrhagia Obesity Surgical History Surgical History History of cholecystectomy History of dilation and curettage History of facial surgery Family History Family History Other Family history non-contributory Social History Social History Smoking status: Never smoker Alcohol intake: current Drinks per week: 1 Substance use: never Living arrangements: with family Gender identity (if verbalized by the patient): Female Spiritual care concerns: No Exam Narrative: GENERAL: Well-appearing, in no acute distress. HEAD: Normocephalic EYES: PERRLA ENT: Nares clear. Mucous membranes moist. Oropharynx without tonsillar hypertrophy exudate or other lesions. No lip or tongue swelling. NECK: Supple. CHEST: No respiratory distress. Clear to auscultation, no adventitious breath sounds. HEART: Regular rate and rhythm. No murmur heard. Normal peripheral pulses. EXTREMITIES: Normal range of motion. No edema. SKIN: Focal areas of an erythematous maculopapular rash to the right elbow flexure and to the ventral surface of bilateral forearms. No tenderness or purulence. No rash to remainder of skin. NEURO: No focal deficits. Alert and oriented x3. PSYCH: Normal mood and affect. Course Vital Signs Vital signs: Vital Signs Temperature 97.6 F 01/29/23 08:47 Pulse Rate 56 L 01/29/23 08:47 Respiratory Rate 16 01/29/23 08:47 Blood Pressure 130/86 01/29/23 08:47 Pulse Oximetry 99 01/29/23 08:47 Temperature 97.6 F 01/29/23 08:47 Pulse Rate 60 01/29/23 09:02
== END 2023-01-29 10:04 | disposition home or self-care (01) ==
PROVIDERS: Emergency Provider Physician Assistant; PCP Emergency Medicine
DX: L30.9 Dermatitis, unspecified (principal); E66.9 Obesity, unspecified; Z68.31 Body mass index [BMI] 31.0-31.9, adult; Z90.49 Acquired absence of other specified parts of digestive tract
CPT/HCPCS: 96372; 99283; J1100

== ENCOUNTER 2023-08-30 10:34 | Emergency (ER) | payer SELFPAY ==
--- NOTE | ~2023-08-30 | CT_ITS ---
CT of the Abdomen and Pelvis: Indication: Abdominal pain Technique: 2.5 mm axial scans were obtained through the abdomen and pelvis following intravenous adm inistration of 100 cc of Omnipaque 350. Dose reduction technique was used on this scan by utilizing a utomated exposure control and iterative reconstruction technique. The dose-length product (DLP) was 5 57.99 mGy-cm. Findings: Scans through the lung bases are unremarkable. The liver, spleen, pancreas, adrenals and kidneys are within normal limits. Cholecystectomy clips are present. No evidence of aortic aneurysm. Shotty scattered central mesenteric lymph nodes are present .. No bowel obstruction or bowel wall thickening. There is no evidence to suggest acute appendicitis. Images through the pelvis were performed. Urinary bladder unremarkable. No significant adnexal mass e vident. No ascites. Bilateral L5 pars interarticularis defects are present, without subluxation. Impression: Shotty scattered central mesenteric lymph nodes. Correlate for mild mesenteric panniculus. Reviewed, dictated and finalized at [facility]. Impression: Shotty scattered central mesenteric lymph nodes. Correlate for mild mesenteric panniculus.
[2023-08-30 10:43] VITALS: BP 141/81; PULSE 80; RESP 16; TEMP 36.7; O2SAT 98
[2023-08-30 12:01] LABS: Basophils Percent Auto 0.4 % (0.2-1.2); Eosinophils Percent Auto 0.3 % (0-4.4); Hematocrit 41.4 % (37.0-47.0); Hemoglobin 13.5 g/dL (12.0-15.0); Immature Granulocyte Absolute 0.02 K/mm3 (0.00-0.031); Immature Granulocyte Percent A 0.3 % (0-0.5); Lymphocytes Absolute Auto 0.74 K/mm3 (0.9-3.2); Lymphocytes Percent Auto 10.2 % (18.3-44.2); Mean Corpuscular HGB Conc 32.6 g/dl (32-36); Mean Corpuscular Hemoglobin 27.4 pg (26-34); Mean Platelet Volume 10.2 fl (7.4-10.4); Monocytes Absolute Auto 0.5 K/mm3 (0.1-0.6); Monocytes Percent Auto 6.5 % (2.6-8.5); Neutrophils Percent Auto 82.3 % (45.5-73.1); Platelet Count Result 225 k/mm3 (150-375); Red Blood Count 4.93 M/mm3 (4.2-5.4); Red Cell Distribution Width 14.2 % (11.5-14.5); White Blood Count 7.3 K/mm3 (4.5-10.0)
[2023-08-30 12:14] LABS: Alanine Aminotransferase 97 U/L (6-35); Albumin Level 4.9 g/dL (3.5-5.1); Alkaline Phosphatase 98 U/L (38-126); Anion Gap 10 mmol/L (4-12); Aspartate Amino Transferase 234 U/L (14-36); Bilirubin,Total 1.1 mg/dL (0.2-1.3); Blood Urea Nitrogen 10 mg/dL (7-17); Calcium 9.2 mg/dL (8.4-10.2); Carbon Dioxide 24 mmol/L (22-30); Chloride 106 mmol/L (98-107); Estimated CRCL calculation 82 ml/min; Estimated Glomerular Filt Rate > 60; Glucose 118 mg/dL (65-110); Lipase 52 U/L (23-300); Potassium 3.7 mmol/L (3.4-5.0); Sodium 140 mmol/L (137-145)
[2023-08-30 12:15] LABS: Appearance Urine Cloudy (Clear); Bacteria Urine 1+ /hpf; Bilirubin Urine Negative (Negative); Blood Urine Negative (Negative); Color Urine Yellow (Yellow); Glucose Urine UA Negative (Negative); Ketones Urine Negative (Negative); Leukocyte Esterase Ur 2+ LEU/UL (Negative); Need Manual Microscopic Reviewed; Nitrate Urine Negative (Negative); Non Pathogenic Casts 0-2; Protein Urine Trace mg/dL (Negative); Specific Grav Ur 1.021 (1.001-1.035); Squamous Epithelial Cell Urine Moderate /hpf (Few); WBC Urine 51-100 /hpf (0-3); pH Urine 5.5 (5.0-9.0)
[2023-08-30 12:16] LABS: Add Urine Microscopic? YES
--- NOTE | 2023-08-30 12:23 | ED.ABDPAIN ---
HPI - Abdominal Pain General Chief Complaint: Abdominal Pain Stated Complaint: abd bloating and pain Time Seen by Provider: 08/30/23 11:35 History of Present Illness HPI narrative: 33-year-old female presented to the emergency department for evaluation of upper abdominal pain. Patient states since yesterday she is having some mild discomfort and the pain worsened. Patient does complain of nausea without vomiting. Patient reports a decrease in bowel movements. Related Data Home Medications Medication Instructions Recorded Confirmed vit no.133-ferrous 1 tablet PO DAILY 12/09/20 01/25/23 fumarate 28 mg-folic acid 800 mcg tablet () ubidecarenone-omega 3-vit E 25 1 cap PO DAILY 01/03/23 01/25/23 mg-150 (90-60) mg-200 unit capsule (Co Q-83-Gleitwo E-Fish Oil) Allergies Allergy/AdvReac Type Severity Reaction Status Date / Time No Known Allergies Allergy Verified 01/29/23 08:52 Review of Systems Review of Systems: All systems reviewed & are unremarkable except as noted in HPI and below PMFSH Past Medical History Medical History Menorrhagia Obesity Surgical History Surgical History History of cholecystectomy History of dilation and curettage History of facial surgery Family History Family History Other Family history non-contributory Social History Social History Smoking status: Never smoker Alcohol intake: current Drinks per week: 1 Substance use: never Living arrangements: with family Gender identity (if verbalized by the patient): Female Spiritual care concerns: No Exam Narrative: APPEARANCE: Well appearing, no pain, no distress, well-nourished. HEAD: normocephalic, atraumatic. EYES: PERRLA/EOMI, conjunctivae clear. NOSE: Normal no drainage EARS:TMS clear with good light reflex. THROAT: Pharynx clear, no exudate. NECK: Supple. No adenopathy, no masses. RESPIRATORY: Airway patent, respirations nonlabored. Clear to auscultation bilaterally, no rales, rhonchi, wheezing. CARDIOVASCULAR: Regular rate and rhythm without murmurs rubs or gallops. ABDOMINAL: Upper abdominal tenderness to palpation, nondistended, normal bowel sounds MUSCULOSKELETAL: Moves all extremities. Strength/ROM intact, No edema, No calf tenderness. NEURO: Alert. Cranial nerves II through XII intact. Grossly intact SKIN: Warm, dry. Normal Color Course Vital Signs Vital signs: Vital Signs Temperature 98.1 F 08/30/23 10:43 Pulse Rate 80 08/30/23 10:43 Respiratory Rate 16 08/30/23 10:43 Blood Pressure 141/81 H 08/30/23 10:43 Pulse Oximetry 98 08/30/23 10:43 Temperature 98.1 F 08/30/23 10:43 Pulse Rate 80 08/30/23 13:37 Respiratory Rate 16 08/30/23 13:37 Blood Pressure 125/74 08/30/23 13:37 Pulse Oximetry 99 08/30/23 13:37 MDM - Abdominal Pain MDM Narrative Medical decision making narrative: 33-year-old female presented emergency department for evaluation of upper abdominal pain and bloating. Patient is afebrile with no leukocytosis and a stable hemoglobin. Patient does have elevated AST and ALT within normal T bili alk-phos and lipase. Patient's UA was concerning for urinary tract infection. 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 Patient was started on antibiotics for the urinary tract infection and patient was advised to take anti-inflammatories for the abdominal pain. Patient does have a history of gastritis and was also advised to restart her omeprazole. Differential Diagnosis Differential diagnosis: Likely abdominal pain, acute appendicitis, constipation, diverticulitis, gastroenteritis, pancreatitis and small bowel obstruction Lab Data Attestation: I reviewed the patient's lab results.
[2023-08-30 13:37] VITALS: BP 125/74; PULSE 80; RESP 16; O2SAT 99
== END 2023-08-30 13:44 | disposition home or self-care (01) ==
PROVIDERS: Emergency Provider Emergency Medicine
DX: K65.4 Sclerosing mesenteritis (principal); E66.9 Obesity, unspecified; Z68.31 Body mass index [BMI] 31.0-31.9, adult; Z90.49 Acquired absence of other specified parts of digestive tract; N39.0 Urinary tract infection, site not specified
CPT/HCPCS: 36415; 74177; 80053; 81001; 81025; 83690; 85025; 87086; 96365; 99284; J0696; Q9967